=== PATIENT | male | born 1945 | race Caucasian/White ===

== ENCOUNTER 2018-04-03 01:05 | Inpatient (IN) | payer MEDICARE ==
[2018-04-03] VITALS (12 sets, daily range): BP systolic 119–172; BP diastolic 59–98
[~2018-04-03] VITALS: Ht 182.9 cm; Wt 136.0 kg
[2018-04-03 02:39] LABS: Basophils # (auto) 0.1 uL; Eosinophils # (auto) 0.3 uL; Hematocrit 21.7 % (41.0-53.0); Lymphocytes # (auto) 1.9 uL; Mean Corpuscular Hemoglobin 17.9 pg (28.0-32.0); Mean Corpuscular Volume 61.3 fL (80.0-100.0); Neutrophils # (auto) 8.2 uL; Red Blood Cells 3.54 10^6/uL (4.5-5.90)
[2018-04-03 02:41] LABS: Eosinophils % (auto) 2.4 % (0.0-7.0); Lymphocytes % (auto) 16.3 % (10.0-50.0); Mean Corpuscular Hgb Conc. 29.2 g/dL (32.0-36.0); Monocytes # (auto) 0.9 uL; Monocytes % (auto) 7.8 % (0.0-12.0); Neutrophils % (auto) 72.5 % (37.0-80.0); Nucleated Red Blood Cells % 0.1 %; Platelet Count (auto) 364 10^3/uL (140-450); Red Cell Distribution Width 18.6 % (11.8-14.3); White Blood Cell 11.4 10^3/uL (4.4-10.8)
[2018-04-03 02:46] LABS: Hemoglobin 6.3 g/dL (13.5-17.5)
[2018-04-03 03:04] LABS: Alanine Aminotransferase 9 U/L (16-61); Albumin 3.5 g/dL (3.4-5.0); Anion Gap 11 (5-15); Aspartate Aminotransferase 9 U/L (15-37); BUN/Creatinine Ratio 13.1; Blood Urea Nitrogen 14 mg/dL (7-18); Calcium 8.5 mg/dL (8.5-10.1); Carbon Dioxide 21 mmol/L (21-32); Chloride 108 mmol/L (98-107); GFR African American 87 mL/min; GFR Non-African American 72 mL/min; Glucose 147 mg/dL (74-106); Magnesium 2.3 mg/dL (1.6-2.6); Potassium 3.7 mmol/L (3.5-5.1); Sodium 140 mmol/L (136-145)
[2018-04-03 03:08] LABS: Alkaline Phosphatase 61 U/L (45-117); Bilirubin, Total 0.5 mg/dL (0.2-1.0); Total Protein 7.3 g/dL (6.4-8.2)
[2018-04-03 04:03] LABS: Urine Bacteria NONE SEEN /hpf (None Seen); Urine Blood Negative /uL (Negative); Urine Specific Gravity 1.011 (1.001-1.035); Urine WBC 1 /hpf (0 - 3)
[2018-04-03] MEDS ORDERED: cloNIDine HCL 0.1 MG TAB PO PRN (06:30)
[2018-04-03] MEDS ORDERED: MORPHINE SULFATE 8mg/ml INJ SDV IV PRN (06:30)
[2018-04-03] MEDS ORDERED: ACETAMINOPHEN 325 MG TAB PO PRN (06:30)
[2018-04-03] MEDS ORDERED: NITROGLYCERIN 0.4 MG SL TAB SL PRN (06:30)
[2018-04-03 07:33] LABS: % Iron Saturation 1.9 % (20-55)
[2018-04-03] MEDS: HYDROcodone-ACET 5/325MG TAB PO PRN ×3 (07:44→21:27)
[2018-04-03] MEDS: PANTOPRAZOLE 40 MG/10 ML VIAL IV SCH (10:35)
[2018-04-03] MEDS ORDERED: DEXTROSE (50%) 50ML SYRG IV PRN (12:15)
[2018-04-03] MEDS: CARVEDILOL 3.125 MG TAB PO SCH ×2 (12:36→21:26)
[2018-04-03] MEDS: LISINOPRIL 20 MG TAB PO SCH (12:36)
[2018-04-03 12:52] LABS: Hematocrit 27.5 % (41.0-53.0); Hemoglobin 8.2 g/dL (13.5-17.5)
[2018-04-03] MEDS ORDERED: VENL150C58 PO (12:52)
[2018-04-03] MEDS ORDERED: TRIA75TA55 PO (12:52)
[2018-04-03] MEDS ORDERED: FENO1TAB42 PO (12:52)
[2018-04-03] MEDS ORDERED: MET50T PO (12:52)
[2018-04-03] MEDS ORDERED: PIO30T PO (12:52)
[2018-04-03] MEDS ORDERED: GABA-521 PO (12:52)
[2018-04-03] MEDS ORDERED: METF-372 PO (12:52)
[2018-04-03] MEDS ORDERED: VERA120T6 PO (12:52)
[2018-04-03] MEDS: ONDANSETRON HCL 4 MG/2 ML VIAL IV PRN ×2 (13:48→21:45)
[2018-04-03] MEDS: ACCU-CHEK COMFORT CURVE STRIP VI SCH ×2 (17:32→21:38)
[2018-04-03] MEDS: InsuLIN REG 1unit/0.01ml Soln (100units/ml) SC SCH ×2 (18:22→21:48)
[2018-04-03] MEDS ORDERED: MORPHINE SULFATE 4 MG/ML SYR/VIAL ONE (21:15)
[2018-04-04] MEDS: TEMAZEPAM 15 MG CAP PO PRN ×2 (00:02→00:15)
[2018-04-04 05:00] VITALS: BP 132/67
[2018-04-04 06:38] LABS: Basophils # (auto) 0.1 uL; Basophils % (auto) 0.7 % (0.0-2.0); Eosinophils # (auto) 0.5 uL; Eosinophils % (auto) 4.5 % (0.0-7.0); Hematocrit 28.8 % (41.0-53.0); Hemoglobin 8.6 g/dL (13.5-17.5); Lymphocytes # (auto) 1.9 uL; Lymphocytes % (auto) 18.4 % (10.0-50.0); Mean Corpuscular Hemoglobin 19.7 pg (28.0-32.0); Mean Corpuscular Hgb Conc. 29.8 g/dL (32.0-36.0); Mean Corpuscular Volume 66.2 fL (80.0-100.0); Monocytes # (auto) 0.8 uL; Monocytes % (auto) 7.9 % (0.0-12.0); Neutrophils % (auto) 68.5 % (37.0-80.0); Nucleated Red Blood Cells % 0.1 %; Platelet Count (auto) 400 10^3/uL (140-450); Red Blood Cells 4.35 10^6/uL (4.5-5.90); White Blood Cell 10.2 10^3/uL (4.4-10.8)
[2018-04-04] MEDS: InsuLIN REG 1unit/0.01ml Soln (100units/ml) SC SCH (06:44)
[2018-04-04] MEDS: ACCU-CHEK COMFORT CURVE STRIP VI SCH (06:45)
[2018-04-04 06:46] LABS: Albumin 3.6 g/dL (3.4-5.0); Potassium 3.5 mmol/L (3.5-5.1)
[2018-04-04 06:50] LABS: BUN/Creatinine Ratio 11.3
[2018-04-04 06:53] LABS: Bilirubin, Total 0.9 mg/dL (0.2-1.0); Total Protein 7.5 g/dL (6.4-8.2)
[2018-04-04 09:00] VITALS: BP 139/83
[2018-04-04] MEDS ORDERED: SODIUM FERR GLUC 62.5MG/5ML 125 MG in SODIUM CHL 0.9% 100 ML IV ONE (09:00)
[2018-04-04] MEDS ORDERED: LISINOPRIL 20 MG TAB PO SCH (10:00)
[2018-04-04] MEDS: PANTOPRAZOLE 40 MG/10 ML VIAL IV SCH (10:01)
[2018-04-04] MEDS: CARVEDILOL 3.125 MG TAB PO SCH (10:02)
[2018-04-04] MEDS: LISINOPRIL 20 MG TAB PO SCH (10:03)
[2018-04-04] MEDS: HYDROcodone-ACET 5/325MG TAB PO PRN (10:10)
== END 2018-04-04 10:45 | disposition home or self-care (01) | DRG 812 ==
LOC: ER 01:07 → TELE 01:08 → TELE-CENTR 14:38
PROVIDERS: ADMIT Nurse Practitioner; ATTEND Internal Medicine
PROC: 30233N1 Transfusion of Nonautologous Red Blood Cells into Peripheral Vein, Percutaneous Approach (ICD-10-PCS; principal; 2018-04-03)
DX: D50.9 Iron deficiency anemia, unspecified (principal); J44.9 Chronic obstructive pulmonary disease, unspecified; I11.9 Hypertensive heart disease without heart failure; E11.9 Type 2 diabetes mellitus without complications; R29.6 Repeated falls; Z82.49 Family history of ischemic heart disease and other diseases of the circulatory system; R55 Syncope and collapse; Z88.0 Allergy status to penicillin
CPT/HCPCS: 36415; 36430; 70450; 71045; 80053; 81001; 82962; 83036; 83540; 83550; 83605; 83735; 83880; 84484; 85014; 85018; 85025; 86850; 86900; 86901; 86920; 87040; 93005; 94761; 96374; 96375; C9113; J1815; J2405

== ENCOUNTER 2018-06-07 08:19 | Inpatient (IN) | payer MEDICARE ==
[~2018-06-07] VITALS: Ht 170.2 cm; Wt 116.0 kg
[~2018-06-07 08:19] MED LIST: FENO1TAB42 PO; GABA-521 PO; MET50T PO; METF-372 PO; PIO30T PO; TRIA75TA55 PO; VENL150C58 PO; VERA120T6 PO
[2018-06-07 09:19] LABS: Basophils # (auto) 0.1 uL; Eosinophils # (auto) 0.1 uL; Monocytes # (auto) 0.6 uL
[2018-06-07 09:21] LABS: Basophils % (auto) 0.8 % (0.0-2.0); Eosinophils % (auto) 0.8 % (0.0-7.0); Hematocrit 32.5 % (41.0-53.0); Hemoglobin 10.1 g/dL (13.5-17.5); Lymphocytes # (auto) 1.1 uL; Lymphocytes % (auto) 8.6 % (10.0-50.0); Mean Corpuscular Hemoglobin 24.6 pg (28.0-32.0); Mean Corpuscular Volume 79.4 fL (80.0-100.0); Monocytes % (auto) 4.7 % (0.0-12.0); Neutrophils # (auto) 11.1 uL; Neutrophils % (auto) 85.1 % (37.0-80.0); Platelet Count (auto) 284 10^3/uL (140-450)
[2018-06-07 09:22] LABS: Red Cell Distribution Width 26.1 % (11.8-14.3)
[2018-06-07 09:27] LABS: Urine Bacteria NONE SEEN /hpf (None Seen); Urine Blood 1+ /uL (Negative); Urine Hyaline Cast FEW /lpf (0 - 2); Urine Mucus FEW (None Seen); Urine Specific Gravity 1.028 (1.001-1.035); Urine WBC 5 /hpf (0 - 3)
[2018-06-07 09:28] LABS: Albumin 3.3 g/dL (3.4-5.0); BUN/Creatinine Ratio 19.8; Calcium 8.1 mg/dL (8.5-10.1); Magnesium 1.8 mg/dL (1.6-2.6); Potassium 3.2 mmol/L (3.5-5.1)
[2018-06-07 09:33] LABS: Bilirubin, Total 0.4 mg/dL (0.2-1.0); Total Protein 6.4 g/dL (6.4-8.2)
[2018-06-07] MEDS ORDERED: HYDROcodone-ACET 5/325MG TAB PO ONE (10:45)
[2018-06-07] MEDS ORDERED: ONDANSETRON HCL 4 MG/2 ML VIAL IV ONE (12:00)
[2018-06-07] MEDS ORDERED: MORPHINE SULF INJ 2 MG/ML SYRINGE 1ML IV ONE (12:00)
[2018-06-07] MEDS ORDERED: ASPirin-EC 81 mg tab PO ONE (14:15)
[2018-06-07] MEDS ORDERED: DEXTROSE (50%) 50ML SYRG IV PRN (14:15)
[2018-06-07] MEDS ORDERED: POTASSIUM CHLORIDE 8 MEQ TAB PO ONE (14:15)
[2018-06-07] MEDS ORDERED: ACETAMINOPHEN 325 MG TAB PO PRN (14:30)
[2018-06-07] MEDS ORDERED: DOCUSATE SOD 100 MG CAP PO PRN (14:30)
[2018-06-07] MEDS ORDERED: MORPHINE SULF INJ 2 MG/ML SYRINGE 1ML IV PRN (14:30)
[2018-06-07] MEDS ORDERED: ONDANSETRON HCL 4 MG/2 ML VIAL IV PRN (14:30)
[2018-06-07] MEDS ORDERED: NITROGLYCERIN 0.4 MG SL TAB SL PRN (14:30)
[2018-06-07] MEDS: HYDROcodone-ACET 5/325MG TAB PO PRN (14:55)
[2018-06-07 16:19] VITALS: BP 176/97
[2018-06-07] MEDS: InsuLIN REG 1unit/0.01ml Soln (100units/ml) SC SCH ×2 (17:30→21:46)
[2018-06-07] MEDS: ACCU-CHEK COMFORT CURVE STRIP VI SCH ×2 (17:31→21:46)
[2018-06-07] MEDS ORDERED: PROMETHAZINE HCL 25 MG/ML 1ML IV PRN (17:45)
[2018-06-07] MEDS ORDERED: diphenhdrAMINE HCL 25 MG CAP PO PRN (17:45)
[2018-06-07 18:24] VITALS: BP 148/65
[2018-06-07 19:46] LABS: Lactic Acid w/Reflex 2.3 mmol/L (0.4-2.0)
[2018-06-07] MEDS: MORPHINE SULFATE 4 MG/ML SYR/VIAL IV PRN (19:47)
[2018-06-07 20:00] VITALS: BP 152/78
[2018-06-07] MEDS ORDERED: LORazepam 2MG/ML-1ML VIAL IV PRN (20:00)
[2018-06-07 20:40] LABS: Cholesterol 121 mg/dL (< 200); HDL Cholesterol 34 mg/dL (40-59); LDL Cholesterol 73 mg/dL (< 100); Triglycerides 150 mg/dL (< 150)
[2018-06-07] MEDS: SODIUM CHLOR 0.9% PF (SALINE LOCK) 10ML VIAL/SYR IV SCH (21:36)
[2018-06-07] MEDS: VENLAFAXINE HCL 37.5mg XR cap PO SCH (21:36)
[2018-06-07] MEDS: ATORVASTATIN 20 MG TAB PO SCH (21:37)
[2018-06-07] MEDS: GABAPENTIN 300 MG CAP PO SCH (21:38)
[2018-06-07] MEDS: METOPROLOL TARTRATE 50 MG TAB PO SCH (21:38)
[2018-06-07] MEDS: FAMOTIDINE 20 MG TAB PO SCH (21:40)
[2018-06-07] MEDS: HALOPERIDOL LACTATE 5 MG/ML INJ VIAL IM PRN (21:48)
[2018-06-08] MEDS: MORPHINE SULFATE 4 MG/ML SYR/VIAL IV PRN (00:51)
[2018-06-08 05:56] LABS: Eosinophils # (auto) 0.2 uL
[2018-06-08 06:04] LABS: Potassium 3.6 mmol/L (3.5-5.1)
[2018-06-08 06:05] LABS: Basophils # (auto) 0.1 uL; Basophils % (auto) 0.6 % (0.0-2.0); Eosinophils % (auto) 1.9 % (0.0-7.0); Hematocrit 33.1 % (41.0-53.0); Hemoglobin 10.5 g/dL (13.5-17.5); Lymphocytes # (auto) 1.7 uL; Lymphocytes % (auto) 18.8 % (10.0-50.0); Mean Corpuscular Hemoglobin 25.5 pg (28.0-32.0); Mean Corpuscular Hgb Conc. 31.9 g/dL (32.0-36.0); Mean Corpuscular Volume 79.9 fL (80.0-100.0); Monocytes # (auto) 0.8 uL; Monocytes % (auto) 9.2 % (0.0-12.0); Neutrophils # (auto) 6.2 uL; Neutrophils % (auto) 69.5 % (37.0-80.0); Platelet Count (auto) 325 10^3/uL (140-450); Red Blood Cells 4.14 10^6/uL (4.5-5.90)
[2018-06-08 06:10] LABS: Albumin 3.3 g/dL (3.4-5.0); BUN/Creatinine Ratio 15.9; Calcium 8.7 mg/dL (8.5-10.1)
[2018-06-08 06:13] LABS: Bilirubin, Total 0.7 mg/dL (0.2-1.0); Total Protein 6.7 g/dL (6.4-8.2)
[2018-06-08 06:25] LABS: Red Cell Distribution Width 25.5 % (11.8-14.3)
[2018-06-08] MEDS: SODIUM CHLOR 0.9% PF (SALINE LOCK) 10ML VIAL/SYR IV SCH ×3 (07:02→21:06)
[2018-06-08] MEDS: GABAPENTIN 300 MG CAP PO SCH ×3 (07:03→21:06)
[2018-06-08] MEDS: InsuLIN REG 1unit/0.01ml Soln (100units/ml) SC SCH ×4 (07:03→21:54)
[2018-06-08] MEDS: ACCU-CHEK COMFORT CURVE STRIP VI SCH ×4 (07:03→21:11)
[2018-06-08] MEDS: HYDROcodone-ACET 5/325MG TAB PO PRN (09:15)
[2018-06-08] MEDS: FENOFIBRATE 145MG TAB PO SCH (10:00)
[2018-06-08] MEDS: VERAPAMIL HCL 120 mg ER tab PO SCH (10:15)
[2018-06-08] MEDS: ASPirin-EC 81 mg tab PO SCH (10:16)
[2018-06-08] MEDS: TRIAMTERENE/HCTZ 37.5/25 MG CAP/TAB PO SCH (10:16)
[2018-06-08] MEDS: VENLAFAXINE HCL 37.5mg XR cap PO SCH ×2 (10:16→21:07)
[2018-06-08] MEDS: PIOGLITAZONE HYDROCHLORIDE 30 MG TAB PO SCH (10:16)
[2018-06-08] MEDS: MULTIPLE VITAMIN TAB PO SCH (10:17)
[2018-06-08] MEDS: ENOXAPARIN SOD 40 MG/0.4 ML SYRINGE SC SCH (10:17)
[2018-06-08] MEDS: FAMOTIDINE 20 MG TAB PO SCH ×2 (10:17→21:10)
[2018-06-08] MEDS: METOPROLOL TARTRATE 50 MG TAB PO SCH ×2 (10:17→21:10)
[2018-06-08] MEDS ORDERED: POTASSIUM CHL 20 Meq TABLET PO ONE (13:15)
[2018-06-08] MEDS ORDERED: FUROSEMIDE 40 MG/4 ML VIAL IV ONE (13:15)
[2018-06-08] MEDS ORDERED: ALBUTEROL SULF 2.5 MG/0.5ML(0.5%) NEB SOLN ONE (13:43)
[2018-06-08] MEDS ORDERED: IPRATROPIUM BROM 0.5 MG/2.5ML INH SOL ONE (13:43)
[2018-06-08] MEDS ORDERED: ALBUTEROL SULF 2.5 MG/0.5ML(0.5%) NEB SOLN NEB PRN (13:45)
[2018-06-08] MEDS ORDERED: ALBUTEROL SULF 2.5 MG/0.5ML(0.5%) NEB SOLN NEB ONE (13:45)
[2018-06-08] MEDS ORDERED: IPRATROPIUM BROM 0.5 MG/2.5ML INH SOL NEB ONE (13:45)
[2018-06-08] MEDS ORDERED: IPRATROPIUM BROM 0.5 MG/2.5ML INH SOL NEB PRN (13:45)
[2018-06-08 14:50] LABS: INR 1.01 (0.9-1.15); Partial Thromboplastin Time 30.1 sec (23.78-33.04); Prothrombin Time 10.8 sec (9.27-12.13)
[2018-06-08] MEDS ORDERED: methylPREDNISolone SOD SUCC 40 MG/ML VL IV ONE (15:15)
[2018-06-08 15:20] VITALS: BP 139/89
[2018-06-08] MEDS: IPRATROPIUM BROM 0.5 MG/2.5ML INH SOL NEB SCH (19:05)
[2018-06-08] MEDS: BUDESONIDE (INHALATION) 0.5 MG/2 ML NEB NEB SCH (19:05)
[2018-06-08] MEDS: ALBUTEROL SULF 2.5 MG/0.5ML(0.5%) NEB SOLN NEB SCH (19:05)
[2018-06-08 20:00] VITALS: BP 122/68
[2018-06-08 21:03] VITALS: BP 139/89
[2018-06-08] MEDS: ATORVASTATIN 20 MG TAB PO SCH (21:07)
[2018-06-08] MEDS: methylPREDNISolone SOD SUCC 40 MG/ML VL IV SCH (21:08)
[2018-06-08 21:49] VITALS: BP 122/68
[2018-06-09] MEDS: MORPHINE SULFATE 4 MG/ML SYR/VIAL IV PRN (04:51)
[2018-06-09 05:00] VITALS: BP 150/74
[2018-06-09] MEDS: SODIUM CHLOR 0.9% PF (SALINE LOCK) 10ML VIAL/SYR IV SCH ×3 (05:57→22:10)
[2018-06-09] MEDS: methylPREDNISolone SOD SUCC 40 MG/ML VL IV SCH ×3 (05:58→22:10)
[2018-06-09] MEDS: HYDROcodone-ACET 5/325MG TAB PO PRN ×3 (05:58→20:39)
[2018-06-09] MEDS: GABAPENTIN 300 MG CAP PO SCH ×3 (05:58→22:11)
[2018-06-09] MEDS: IPRATROPIUM BROM 0.5 MG/2.5ML INH SOL NEB SCH ×3 (06:01→18:33)
[2018-06-09] MEDS: BUDESONIDE (INHALATION) 0.5 MG/2 ML NEB NEB SCH ×2 (06:01→18:33)
[2018-06-09] MEDS: ALBUTEROL SULF 2.5 MG/0.5ML(0.5%) NEB SOLN NEB SCH ×3 (06:01→18:33)
[2018-06-09] MEDS: InsuLIN REG 1unit/0.01ml Soln (100units/ml) SC SCH ×4 (06:53→18:01)
[2018-06-09] MEDS: ACCU-CHEK COMFORT CURVE STRIP VI SCH ×3 (06:53→18:00)
[2018-06-09 09:00] VITALS: BP 146/73
[2018-06-09 09:02] LABS: Folate (Folic Acid) 13.97 ng/mL (5.38-24)
[2018-06-09] MEDS: MULTIPLE VITAMIN TAB PO SCH (09:24)
[2018-06-09] MEDS: TRIAMTERENE/HCTZ 37.5/25 MG CAP/TAB PO SCH (09:25)
[2018-06-09] MEDS: PIOGLITAZONE HYDROCHLORIDE 30 MG TAB PO SCH (09:26)
[2018-06-09] MEDS: VERAPAMIL HCL 120 mg ER tab PO SCH (09:26)
[2018-06-09] MEDS: VENLAFAXINE HCL 37.5mg XR cap PO SCH ×2 (09:27→22:10)
[2018-06-09] MEDS: ASPirin-EC 81 mg tab PO SCH (09:28)
[2018-06-09] MEDS: METOPROLOL TARTRATE 50 MG TAB PO SCH ×2 (09:29→22:12)
[2018-06-09] MEDS: FAMOTIDINE 20 MG TAB PO SCH ×2 (09:30→22:11)
[2018-06-09] MEDS: ENOXAPARIN SOD 40 MG/0.4 ML SYRINGE SC SCH (09:30)
[2018-06-09] MEDS: FENOFIBRATE 145MG TAB PO SCH (09:31)
[2018-06-09] MEDS ORDERED: DEXTROSE (50%) 50ML SYRG IV PRN (11:30)
[2018-06-09 12:22] VITALS: BP 142/68
[2018-06-09 17:00] VITALS: BP 156/84
[2018-06-09 20:00] VITALS: BP 148/83
[2018-06-09 22:00] VITALS: BP 148/83
[2018-06-09] MEDS: ATORVASTATIN 20 MG TAB PO SCH (22:10)
[2018-06-10] MEDS: InsuLIN REG 1unit/0.01ml Soln (100units/ml) SC SCH ×4 (00:25→18:35)
[2018-06-10] MEDS: ACCU-CHEK COMFORT CURVE STRIP VI SCH ×4 (00:25→18:25)
[2018-06-10] MEDS: HYDROcodone-ACET 5/325MG TAB PO PRN ×2 (03:37→21:43)
[2018-06-10 05:00] VITALS: BP 170/86
[2018-06-10] MEDS: SODIUM CHLOR 0.9% PF (SALINE LOCK) 10ML VIAL/SYR IV SCH ×2 (06:20→21:39)
[2018-06-10] MEDS: methylPREDNISolone SOD SUCC 40 MG/ML VL IV SCH ×2 (06:20→13:55)
[2018-06-10] MEDS: GABAPENTIN 300 MG CAP PO SCH ×3 (06:21→21:38)
[2018-06-10] MEDS: BUDESONIDE (INHALATION) 0.5 MG/2 ML NEB NEB SCH ×2 (06:49→19:29)
[2018-06-10] MEDS: IPRATROPIUM BROM 0.5 MG/2.5ML INH SOL NEB SCH ×4 (06:49→19:29)
[2018-06-10] MEDS: ALBUTEROL SULF 2.5 MG/0.5ML(0.5%) NEB SOLN NEB SCH ×4 (06:49→19:29)
[2018-06-10 09:00] VITALS: BP 135/75
[2018-06-10] MEDS: MORPHINE SULFATE 4 MG/ML SYR/VIAL IV PRN (09:09)
[2018-06-10] MEDS: FENOFIBRATE 145MG TAB PO SCH (10:00)
[2018-06-10] MEDS: PIOGLITAZONE HYDROCHLORIDE 30 MG TAB PO SCH (11:15)
[2018-06-10] MEDS: FAMOTIDINE 20 MG TAB PO SCH ×2 (11:16→21:39)
[2018-06-10] MEDS: TRIAMTERENE/HCTZ 37.5/25 MG CAP/TAB PO SCH (11:16)
[2018-06-10] MEDS: METOPROLOL TARTRATE 50 MG TAB PO SCH ×2 (11:17→21:39)
[2018-06-10] MEDS: MULTIPLE VITAMIN TAB PO SCH (11:17)
[2018-06-10] MEDS: ASPirin-EC 81 mg tab PO SCH (11:17)
[2018-06-10] MEDS: ENOXAPARIN SOD 40 MG/0.4 ML SYRINGE SC SCH (11:18)
[2018-06-10] MEDS: VENLAFAXINE HCL 37.5mg XR cap PO SCH ×2 (11:21→21:39)
[2018-06-10] MEDS: VERAPAMIL HCL 120 mg ER tab PO SCH (11:21)
[2018-06-10 13:00] VITALS: BP 138/71
[2018-06-10] MEDS ORDERED: MORPHINE SULFATE 4 MG/ML SYR/VIAL IV PRN (14:15)
[2018-06-10] MEDS ORDERED: predniSONE 20 MG TAB PO ONE (14:15)
[2018-06-10] MEDS ORDERED: MORPHINE SULF INJ 2 MG/ML SYRINGE 1ML IV PRN (14:15)
[2018-06-10] MEDS: HALOPERIDOL LACTATE 5 MG/ML INJ VIAL IM PRN (15:29)
[2018-06-10 17:00] VITALS: BP 136/70
[2018-06-10] MEDS: metFORMIN HYDROCHLORIDE 500 MG TAB PO SCH (18:35)
[2018-06-10] MEDS ORDERED: CYANOCOBALAMIN (B-12) 1000 MCG/1 ML VIAL IM ONE (18:45)
[2018-06-10] MEDS: ATORVASTATIN 20 MG TAB PO SCH (21:38)
[2018-06-10 22:00] VITALS: BP 159/86
[2018-06-11] MEDS: ACCU-CHEK COMFORT CURVE STRIP VI SCH ×4 (00:07→17:50)
[2018-06-11] MEDS: InsuLIN REG 1unit/0.01ml Soln (100units/ml) SC SCH ×4 (00:08→17:50)
[2018-06-11] MEDS: IPRATROPIUM BROM 0.5 MG/2.5ML INH SOL NEB SCH ×3 (01:09→12:08)
[2018-06-11] MEDS: ALBUTEROL SULF 2.5 MG/0.5ML(0.5%) NEB SOLN NEB SCH ×3 (01:10→12:08)
[2018-06-11] MEDS: HYDROcodone-ACET 5/325MG TAB PO PRN ×2 (03:43→15:31)
[2018-06-11 05:00] VITALS: BP 147/71
[2018-06-11] MEDS: GABAPENTIN 300 MG CAP PO SCH ×2 (06:24→13:34)
[2018-06-11] MEDS: metFORMIN HYDROCHLORIDE 500 MG TAB PO SCH ×2 (06:28→17:50)
[2018-06-11] MEDS: SODIUM CHLOR 0.9% PF (SALINE LOCK) 10ML VIAL/SYR IV SCH ×2 (06:29→13:29)
[2018-06-11] MEDS: BUDESONIDE (INHALATION) 0.5 MG/2 ML NEB NEB SCH (06:43)
[2018-06-11 08:00] VITALS: BP 154/72
[2018-06-11 09:00] VITALS: BP 142/71
[2018-06-11] MEDS: FENOFIBRATE 145MG TAB PO SCH (10:00)
[2018-06-11] MEDS ORDERED: predniSONE 20 MG TAB PO SCH (10:00)
[2018-06-11] MEDS ORDERED: CYANOCOBALAMIN 500 MCG TAB PO SCH (10:00)
[2018-06-11] MEDS: FAMOTIDINE 20 MG TAB PO SCH (10:35)
[2018-06-11] MEDS: MULTIPLE VITAMIN TAB PO SCH (10:36)
[2018-06-11] MEDS: TRIAMTERENE/HCTZ 37.5/25 MG CAP/TAB PO SCH (10:36)
[2018-06-11] MEDS: VERAPAMIL HCL 120 mg ER tab PO SCH (10:37)
[2018-06-11] MEDS: PIOGLITAZONE HYDROCHLORIDE 30 MG TAB PO SCH (10:37)
[2018-06-11] MEDS: METOPROLOL TARTRATE 50 MG TAB PO SCH (10:38)
[2018-06-11] MEDS: VENLAFAXINE HCL 37.5mg XR cap PO SCH (10:38)
[2018-06-11] MEDS: ENOXAPARIN SOD 40 MG/0.4 ML SYRINGE SC SCH (10:39)
[2018-06-11] MEDS: ASPirin-EC 81 mg tab PO SCH (10:40)
[2018-06-11 12:00] VITALS: BP 136/67
[2018-06-11] MEDS ORDERED: ATOR20TA50 PO (13:07)
[2018-06-11] MEDS ORDERED: ASP81EC PO (13:07)
[2018-06-11] MEDS ORDERED: CYAN500T2 PO (13:07)
[2018-06-11 17:00] VITALS: BP 150/90
== END 2018-06-11 19:00 | disposition home or self-care (01) | DRG 291 ==
LOC: EDUNIT# 08:19 → ER 08:23 → TELE-WESTW 08:24 → TELE-CENTR 06-10 16:14
PROVIDERS: ADMIT Internal Medicine; ATTEND Internal Medicine
PROC: 5A09357 Assistance with Respiratory Ventilation, Less than 24 Consecutive Hours, Continuous Positive Airway Pressure (ICD-10-PCS; principal; 2018-06-08)
PROC: 5A09357 Assistance with Respiratory Ventilation, Less than 24 Consecutive Hours, Continuous Positive Airway Pressure (ICD-10-PCS; 2018-06-10)
DX: I13.0 Hypertensive heart and chronic kidney disease with heart failure and stage 1 through stage 4 chronic kidney disease, or unspecified chronic kidney disease (principal); J96.01 Acute respiratory failure with hypoxia; I50.43 Acute on chronic combined systolic (congestive) and diastolic (congestive) heart failure; G93.41 Metabolic encephalopathy; J44.1 Chronic obstructive pulmonary disease with (acute) exacerbation; E44.1 Mild protein-calorie malnutrition; G45.9 Transient cerebral ischemic attack, unspecified; Z68.41 Body mass index [BMI] 40.0-44.9, adult; G93.1 Anoxic brain damage, not elsewhere classified; E11.42 Type 2 diabetes mellitus with diabetic polyneuropathy; I42.1 Obstructive hypertrophic cardiomyopathy; E87.6 Hypokalemia; D50.9 Iron deficiency anemia, unspecified; N18.2 Chronic kidney disease, stage 2 (mild); G47.30 Sleep apnea, unspecified; E11.21 Type 2 diabetes mellitus with diabetic nephropathy; K80.20 Calculus of gallbladder without cholecystitis without obstruction; E11.22 Type 2 diabetes mellitus with diabetic chronic kidney disease; E53.8 Deficiency of other specified B group vitamins; E66.01 Morbid (severe) obesity due to excess calories; G47.33 Obstructive sleep apnea (adult) (pediatric); I44.30 Unspecified atrioventricular block; I45.10 Unspecified right bundle-branch block; N28.1 Cyst of kidney, acquired; Z79.82 Long term (current) use of aspirin; Z79.899 Other long term (current) drug therapy; Z80.0 Family history of malignant neoplasm of digestive organs; Z82.0 Family history of epilepsy and other diseases of the nervous system; Z82.49 Family history of ischemic heart disease and other diseases of the circulatory system; Z95.810 Presence of automatic (implantable) cardiac defibrillator
CPT/HCPCS: 36415; 36600; 51702; 70450; 71045; 74176; 80053; 80061; 81001; 82607; 82746; 82805; 82962; 83036; 83540; 83605; 83735; 83880; 84443; 84484; 85025; 85379; 85610; 85730; 87081; 87086; 92610; 93005; 93306; 93886; 94640; 94660; 94761; 95819; 96374; 96375; 97116; 97163; 97530; J1815; J2405

== ENCOUNTER 2020-12-31 02:02 | Inpatient (IN) | payer MEDICARE ==
[~2020-12-31] VITALS: Ht 170.2 cm; Wt 96.6 kg
[~2020-12-31 02:02] MED LIST changes: +ASPI-394 PO; +ATOR20TA50 PO; +CYAN500T3 PO; +FENO145T27 PO; -FENO1TAB42 PO; +VERA120T13 PO; -VERA120T6 PO
[2020-12-31] MEDS ORDERED: ALBUTEROL SULF 2.5 MG/0.5ML(0.5%) NEB SOLN NEB ONE (02:30)
[2020-12-31] MEDS ORDERED: IPRATROPIUM BROM 0.5 MG/2.5ML INH SOL NEB ONE (02:30)
[2020-12-31 02:47] LABS: Basophils # (auto) 0.1 10 ^3/uL (0-0.2); Eosinophils # (auto) 0.2 10 ^3/uL (0-0.8); Lymphocytes # (auto) 1.1 10 ^3/uL (0.4-5.4); Monocytes # (auto) 0.8 10 ^3/uL (0-1.3); Neutrophils # (auto) 6.6 10 ^3/uL (1.6-8.6); Nucleated Red Blood Cells % 0.1 %; Red Cell Distribution Width 18.4 % (11.8-14.3); White Blood Cell 8.8 10^3/uL (4.4-10.8)
[2020-12-31 02:48] LABS: Basophils % (auto) 0.9 % (0.0-2.0); Eosinophils % (auto) 2.2 % (0.0-7.0); Hematocrit 41.1 % (41.0-53.0); Lymphocytes % (auto) 12.5 % (10.0-50.0); Mean Corpuscular Hemoglobin 24.5 pg (28.0-32.0); Mean Corpuscular Hgb Conc. 31.7 g/dL (32.0-36.0); Mean Corpuscular Volume 77.3 fL (80.0-100.0); Neutrophils % (auto) 75.4 % (37.0-80.0); Platelet Count (auto) 253 10^3/uL (140-450); Red Blood Cells 5.32 10^6/uL (4.5-5.90)
[2020-12-31 03:13] LABS: Alanine Aminotransferase 10 U/L (16-61); Albumin 2.8 g/dL (3.4-5.0); Anion Gap 9 (5-15); BUN/Creatinine Ratio 12.7; Blood Urea Nitrogen 18 mg/dL (7-18); Calcium 8.7 mg/dL (8.5-10.1); Carbon Dioxide 23 mmol/L (21-32); Chloride 105 mmol/L (98-107); GFR African American 63 mL/min; GFR Non-African American 52 mL/min; Glucose 157 mg/dL (74-106); Magnesium 1.8 mg/dL (1.6-2.6); Potassium 4.6 mmol/L (3.5-5.1); Sodium 137 mmol/L (136-145)
[2020-12-31 03:18] LABS: Alkaline Phosphatase 326 U/L (45-117); Aspartate Aminotransferase 27 U/L (15-37); Bilirubin, Total 0.7 mg/dL (0.2-1.0); Total Protein 7.1 g/dL (6.4-8.2)
[2020-12-31 04:31] LABS: INR 1.15 (0.9-1.15); Partial Thromboplastin Time 30.1 sec (23.0-31.2)
[2020-12-31] MEDS ORDERED: ENOXAPARIN SOD 120 MG/0.8 ML SYRINGE SC ONE (04:45)
[2020-12-31] MEDS ORDERED: ONDANSETRON HCL 4 MG/2 ML VIAL IV ONE (05:15)
[2020-12-31] MEDS ORDERED: AMIODARONE HCL 200 MG TAB PO ONE (06:15)
[2020-12-31] MEDS ORDERED: NITROGLYCERIN 0.4 MG SL TAB SL PRN (06:45)
[2020-12-31] MEDS ORDERED: MORPHINE SULF INJ 2 MG/ML SYRINGE 1ML IV PRN (06:45)
[2020-12-31] MEDS ORDERED: DEXTROSE (50%) 50ML SYRG IV PRN (06:45)
[2020-12-31] MEDS: ACCU-CHEK COMFORT CURVE STRIP VI SCH ×4 (07:05→21:48)
[2020-12-31] MEDS: InsuLIN REG 1unit/0.01ml Soln (100units/ml) SC SCH ×4 (07:07→21:47)
[2020-12-31 07:26] LABS: Eosinophils # (auto) 0.1 10 ^3/uL (0-0.8); Hemoglobin 12.2 g/dL (13.5-17.5); Lymphocytes # (auto) 0.8 10 ^3/uL (0.4-5.4); Mean Corpuscular Volume 76.5 fL (80.0-100.0); Monocytes # (auto) 0.6 10 ^3/uL (0-1.3); Monocytes % (auto) 8.1 % (0.0-12.0); Neutrophils # (auto) 6.4 10 ^3/uL (1.6-8.6)
[2020-12-31 07:29] LABS: Basophils # (auto) 0.1 10 ^3/uL (0-0.2); Basophils % (auto) 0.8 % (0.0-2.0); Eosinophils % (auto) 1.2 % (0.0-7.0); Hematocrit 38.7 % (41.0-53.0); Lymphocytes % (auto) 10.3 % (10.0-50.0); Mean Corpuscular Hemoglobin 24.2 pg (28.0-32.0); Mean Corpuscular Hgb Conc. 31.6 g/dL (32.0-36.0); Neutrophils % (auto) 79.6 % (37.0-80.0); Nucleated Red Blood Cells % 0.1 %; Platelet Count (auto) 312 10^3/uL (140-450); Red Blood Cells 5.06 10^6/uL (4.5-5.90)
[2020-12-31 07:46] LABS: INR 1.18 (0.9-1.15)
[2020-12-31 07:56] LABS: Albumin 2.9 g/dL (3.4-5.0); Calcium 8.8 mg/dL (8.5-10.1); Potassium 4.2 mmol/L (3.5-5.1)
[2020-12-31 07:59] LABS: BUN/Creatinine Ratio 13.9; Bilirubin, Total 0.7 mg/dL (0.2-1.0); Total Protein 7.3 g/dL (6.4-8.2)
[2020-12-31 08:43] VITALS: BP 130/64
[2020-12-31 09:17] LABS: Magnesium 1.7 mg/dL (1.6-2.6)
[2020-12-31] MEDS: ZINC SULFATE 220mg CAP or TAB PO SCH (10:47)
[2020-12-31] MEDS: FAMOTIDINE (10MG/ML) 2ML VL IV SCH ×2 (10:47→21:46)
[2020-12-31] MEDS: MULTIPLE VITAMIN TAB PO SCH (10:47)
[2020-12-31] MEDS: ASCORBIC ACID 500 MG TAB PO SCH ×2 (10:48→21:47)
[2020-12-31] MEDS: HEPARIN SODIUM (PORCINE) 5000 UNITS/ML 1ML VIAL SC SCH ×2 (10:49→21:48)
[2020-12-31] MEDS ORDERED: CEFTRIAXONE SODIUM 2 GM in D5W 5% 50 ML IV ONE (11:15)
[2020-12-31] MEDS ORDERED: IOHEXOL 350 MG/ML 100ML IJ ONE (11:15)
[2020-12-31 12:11] VITALS: BP 150/82
[2020-12-31] MEDS: DOXYCYCLINE 100MG/250ML 250 ML IV SCH ×2 (12:43→23:36)
[2020-12-31] MEDS: SODIUM CHLOR 0.9% PF (SALINE LOCK) 10ML VIAL/SYR IV SCH ×2 (14:09→21:46)
[2020-12-31] MEDS: hydrALAZINE HCL 20 MG/ML VL IV PRN (17:14)
[2020-12-31] MEDS: ONDANSETRON HCL 4 MG/2 ML VIAL IV PRN (18:39)
[2020-12-31] MEDS: ALBUTEROL SULF 2.5 MG/0.5ML(0.5%) NEB SOLN NEB PRN (18:53)
[2020-12-31] MEDS: IPRATROPIUM BROM 0.5 MG/2.5ML INH SOL NEB PRN (18:53)
[2020-12-31] MEDS: METOPROLOL TARTRATE 50 MG TAB PO SCH (21:47)
[2020-12-31] MEDS: PRAMIPEXOLE DIHYDROCHLORIDE MO 0.25 MG TAB PO SCH (21:47)
[2020-12-31 22:00] VITALS: BP 135/58
[2021-01-01] VITALS (13 sets, daily range): BP systolic 127–177; BP diastolic 58–102
[2021-01-01] MEDS: HYDROcodone-ACET 5/325MG TAB PO PRN
[2021-01-01] MEDS: ONDANSETRON HCL 4 MG/2 ML VIAL IV PRN ×5 (02:01→18:33)
[2021-01-01] MEDS: PRAMIPEXOLE DIHYDROCHLORIDE MO 0.25 MG TAB PO SCH ×3 (06:00→22:09)
[2021-01-01] MEDS: ACCU-CHEK COMFORT CURVE STRIP VI SCH ×4 (06:03→22:09)
[2021-01-01] MEDS: InsuLIN REG 1unit/0.01ml Soln (100units/ml) SC SCH ×4 (06:41→22:00)
[2021-01-01 07:27] LABS: Basophils # (auto) 0 10 ^3/uL (0-0.2); Hemoglobin 11.7 g/dL (13.5-17.5); Mean Corpuscular Hemoglobin 24.2 pg (28.0-32.0); Mean Corpuscular Hgb Conc. 31.4 g/dL (32.0-36.0); Monocytes # (auto) 0.6 10 ^3/uL (0-1.3); White Blood Cell 6.2 10^3/uL (4.4-10.8)
[2021-01-01 07:30] LABS: Basophils % (auto) 0.7 % (0.0-2.0); Eosinophils # (auto) 0.1 10 ^3/uL (0-0.8); Eosinophils % (auto) 2.2 % (0.0-7.0); Hematocrit 37.2 % (41.0-53.0); Lymphocytes # (auto) 0.5 10 ^3/uL (0.4-5.4); Lymphocytes % (auto) 8.7 % (10.0-50.0); Mean Corpuscular Volume 76.9 fL (80.0-100.0); Monocytes % (auto) 10.2 % (0.0-12.0); Neutrophils # (auto) 4.9 10 ^3/uL (1.6-8.6); Neutrophils % (auto) 78.2 % (37.0-80.0); Platelet Count (auto) 250 10^3/uL (140-450); Red Blood Cells 4.84 10^6/uL (4.5-5.90); Red Cell Distribution Width 17.7 % (11.8-14.3)
[2021-01-01 07:44] LABS: Albumin 2.7 g/dL (3.4-5.0); BUN/Creatinine Ratio 12.5; Calcium 8.9 mg/dL (8.5-10.1); Potassium 4.2 mmol/L (3.5-5.1)
[2021-01-01 07:47] LABS: Bilirubin, Total 0.5 mg/dL (0.2-1.0); Total Protein 6.5 g/dL (6.4-8.2)
[2021-01-01] MEDS: HEPARIN SODIUM (PORCINE) 5000 UNITS/ML 1ML VIAL SC SCH ×2 (08:00→22:10)
[2021-01-01] MEDS ORDERED: fentaNYL CITRATE 100 MCG/2 ML VL IV ONE (10:00)
[2021-01-01] MEDS ORDERED: MIDAZOLAM HCL 1MG/1ML-2 ML VIAL IV ONE (10:00)
[2021-01-01] MEDS ORDERED: fentaNYL CITRATE 100 MCG/2 ML VL ONE (10:05)
[2021-01-01] MEDS ORDERED: MIDAZOLAM HCL 1MG/1ML-2 ML VIAL ONE (10:05)
[2021-01-01] MEDS: DOXYCYCLINE 100MG/250ML 250 ML IV SCH ×2 (11:25→23:15)
[2021-01-01] MEDS: cefTRIAXone 1GM/50ML D5W 50 ML IV SCH (11:25)
[2021-01-01] MEDS: FAMOTIDINE (10MG/ML) 2ML VL IV SCH ×2 (11:25→22:07)
[2021-01-01] MEDS: ZINC SULFATE 220mg CAP or TAB PO SCH (11:26)
[2021-01-01] MEDS: METOPROLOL TARTRATE 50 MG TAB PO SCH ×2 (11:26→22:09)
[2021-01-01] MEDS: ASCORBIC ACID 500 MG TAB PO SCH ×2 (11:26→22:09)
[2021-01-01] MEDS: MULTIPLE VITAMIN TAB PO SCH (11:26)
[2021-01-01] MEDS: SODIUM CHLOR 0.9% PF (SALINE LOCK) 10ML VIAL/SYR IV SCH ×3 (14:00→22:07)
[2021-01-02 05:00] VITALS: BP 144/65
[2021-01-02] MEDS: InsuLIN REG 1unit/0.01ml Soln (100units/ml) SC SCH ×4 (07:00→22:00)
[2021-01-02] MEDS: SODIUM CHLOR 0.9% PF (SALINE LOCK) 10ML VIAL/SYR IV SCH ×3 (07:02→22:09)
[2021-01-02] MEDS: PRAMIPEXOLE DIHYDROCHLORIDE MO 0.25 MG TAB PO SCH ×3 (07:02→22:08)
[2021-01-02] MEDS: ACCU-CHEK COMFORT CURVE STRIP VI SCH ×4 (07:03→22:09)
[2021-01-02 09:00] VITALS: BP 142/73
[2021-01-02] MEDS: FAMOTIDINE (10MG/ML) 2ML VL IV SCH ×2 (10:00→22:09)
[2021-01-02] MEDS: HEPARIN SODIUM (PORCINE) 5000 UNITS/ML 1ML VIAL SC SCH ×2 (10:43→22:17)
[2021-01-02] MEDS: ZINC SULFATE 220mg CAP or TAB PO SCH (10:44)
[2021-01-02] MEDS: HYDROcodone-ACET 5/325MG TAB PO PRN ×2 (10:45→17:41)
[2021-01-02] MEDS: METOPROLOL TARTRATE 50 MG TAB PO SCH ×2 (10:45→22:09)
[2021-01-02] MEDS: MULTIPLE VITAMIN TAB PO SCH (10:45)
[2021-01-02] MEDS: ASCORBIC ACID 500 MG TAB PO SCH ×2 (10:46→22:09)
[2021-01-02] MEDS: DOXYCYCLINE 100MG/250ML 250 ML IV SCH (12:15)
[2021-01-02] MEDS: cefTRIAXone 1GM/50ML D5W 50 ML IV SCH (12:15)
[2021-01-02] MEDS: ONDANSETRON HCL 4 MG/2 ML VIAL IV PRN (14:31)
[2021-01-02 17:00] VITALS: BP 148/90
[2021-01-02 20:00] LABS: Urine Bacteria NONE SEEN /hpf (None Seen); Urine Blood Negative /uL (Negative); Urine WBC 1 /hpf (0 - 3)
[2021-01-02 22:59] VITALS: BP 148/88
[2021-01-02] MEDS ORDERED: FUROSEMIDE 20 MG/2 ML VIAL ONE (23:50)
[2021-01-03] VITALS (8 sets, daily range): BP systolic 117–159; BP diastolic 52–107
[2021-01-03] MEDS ORDERED: ALPRAZolam 0.25 MG TAB ONE (00:17)
[2021-01-03] MEDS: DOXYCYCLINE 100MG/250ML 250 ML IV SCH ×3 (01:28→23:08)
[2021-01-03] MEDS ORDERED: ALPRAZolam 0.25 MG TAB PO PRN (01:30)
[2021-01-03] MEDS ORDERED: FUROSEMIDE 20 MG/2 ML VIAL IV ONE (01:30)
[2021-01-03] MEDS: HYDROcodone-ACET 5/325MG TAB PO PRN ×3 (02:30→19:08)
[2021-01-03] MEDS ORDERED: LORazepam 2MG/ML-1ML VIAL IV ONE (05:30)
[2021-01-03] MEDS: ACCU-CHEK COMFORT CURVE STRIP VI SCH ×4 (05:32→22:06)
[2021-01-03] MEDS: PRAMIPEXOLE DIHYDROCHLORIDE MO 0.25 MG TAB PO SCH ×3 (05:32→22:27)
[2021-01-03] MEDS: SODIUM CHLOR 0.9% PF (SALINE LOCK) 10ML VIAL/SYR IV SCH ×3 (05:32→22:05)
[2021-01-03] MEDS: InsuLIN REG 1unit/0.01ml Soln (100units/ml) SC SCH ×4 (05:36→22:00)
[2021-01-03 06:52] LABS: BUN/Creatinine Ratio 13.1; Calcium 8.4 mg/dL (8.5-10.1); Magnesium 1.6 mg/dL (1.6-2.6); Phosphorus 2.1 mg/dL (2.5-4.90); Potassium 3.7 mmol/L (3.5-5.1)
[2021-01-03] MEDS: HALOPERIDOL LACTATE 5 MG/ML INJ VIAL IM PRN (09:47)
[2021-01-03] MEDS: FAMOTIDINE (10MG/ML) 2ML VL IV SCH ×2 (09:49→22:06)
[2021-01-03] MEDS: METOPROLOL TARTRATE 50 MG TAB PO SCH ×2 (09:50→22:28)
[2021-01-03] MEDS: cefTRIAXone 1GM/50ML D5W 50 ML IV SCH (09:51)
[2021-01-03] MEDS: MULTIPLE VITAMIN TAB PO SCH (10:00)
[2021-01-03] MEDS: ASCORBIC ACID 500 MG TAB PO SCH ×2 (10:00→22:27)
[2021-01-03] MEDS: ZINC SULFATE 220mg CAP or TAB PO SCH (10:00)
[2021-01-03] MEDS: HEPARIN SODIUM (PORCINE) 5000 UNITS/ML 1ML VIAL SC SCH ×2 (10:07→22:08)
[2021-01-03] MEDS: ALBUTEROL SULF 2.5 MG/0.5ML(0.5%) NEB SOLN NEB PRN (10:10)
[2021-01-03] MEDS: IPRATROPIUM BROM 0.5 MG/2.5ML INH SOL NEB PRN (10:10)
[2021-01-04] MEDS: HALOPERIDOL LACTATE 5 MG/ML INJ VIAL IM PRN ×3 (00:56→23:10)
[2021-01-04 05:00] VITALS: BP 146/76
[2021-01-04] MEDS: SODIUM CHLOR 0.9% PF (SALINE LOCK) 10ML VIAL/SYR IV SCH ×3 (05:16→21:45)
[2021-01-04] MEDS: PRAMIPEXOLE DIHYDROCHLORIDE MO 0.25 MG TAB PO SCH ×3 (05:21→21:46)
[2021-01-04] MEDS: HYDROcodone-ACET 5/325MG TAB PO PRN ×2 (05:22→09:28)
[2021-01-04] MEDS: InsuLIN REG 1unit/0.01ml Soln (100units/ml) SC SCH ×5 (06:47→22:00)
[2021-01-04] MEDS: ACCU-CHEK COMFORT CURVE STRIP VI SCH ×4 (06:47→21:46)
[2021-01-04 09:00] VITALS: BP 150/52
[2021-01-04] MEDS: ZINC SULFATE 220mg CAP or TAB PO SCH (09:28)
[2021-01-04] MEDS: METOPROLOL TARTRATE 50 MG TAB PO SCH ×2 (09:29→21:46)
[2021-01-04] MEDS: MULTIPLE VITAMIN TAB PO SCH (09:29)
[2021-01-04] MEDS: cefTRIAXone 1GM/50ML D5W 50 ML IV SCH (09:30)
[2021-01-04] MEDS: FAMOTIDINE (10MG/ML) 2ML VL IV SCH ×2 (09:30→21:45)
[2021-01-04] MEDS: ASCORBIC ACID 500 MG TAB PO SCH ×2 (09:30→21:46)
[2021-01-04] MEDS: HEPARIN SODIUM (PORCINE) 5000 UNITS/ML 1ML VIAL SC SCH ×2 (09:33→21:47)
[2021-01-04] MEDS: MORPHINE SULFATE 4 MG/ML SYR/VIAL IV PRN ×2 (11:33→19:36)
[2021-01-04] MEDS: DOXYCYCLINE 100MG/250ML 250 ML IV SCH ×2 (11:33→23:10)
[2021-01-04 13:00] VITALS: BP 147/80
[2021-01-04 17:36] VITALS: BP 163/97
[2021-01-04] MEDS: hydrALAZINE HCL 20 MG/ML VL IV PRN (18:46)
[2021-01-04] MEDS: ALBUTEROL SULF 2.5 MG/0.5ML(0.5%) NEB SOLN NEB PRN (19:58)
[2021-01-04] MEDS: IPRATROPIUM BROM 0.5 MG/2.5ML INH SOL NEB PRN (19:58)
[2021-01-04 20:00] VITALS: BP 132/79
[2021-01-04 21:57] VITALS: BP 132/79
[2021-01-05] MEDS: MORPHINE SULFATE 4 MG/ML SYR/VIAL IV PRN ×3 (01:24→14:55)
[2021-01-05 05:00] VITALS: BP 130/78
[2021-01-05] MEDS: SODIUM CHLOR 0.9% PF (SALINE LOCK) 10ML VIAL/SYR IV SCH ×3 (06:10→22:11)
[2021-01-05] MEDS: ACCU-CHEK COMFORT CURVE STRIP VI SCH ×4 (06:10→22:11)
[2021-01-05] MEDS: PRAMIPEXOLE DIHYDROCHLORIDE MO 0.25 MG TAB PO SCH ×3 (06:10→22:10)
[2021-01-05] MEDS: InsuLIN REG 1unit/0.01ml Soln (100units/ml) SC SCH ×4 (06:10→22:00)
[2021-01-05] MEDS: FAMOTIDINE (10MG/ML) 2ML VL IV SCH ×2 (08:45→22:09)
[2021-01-05] MEDS: cefTRIAXone 1GM/50ML D5W 50 ML IV SCH (08:45)
[2021-01-05] MEDS: MULTIPLE VITAMIN TAB PO SCH (08:46)
[2021-01-05] MEDS: ASCORBIC ACID 500 MG TAB PO SCH ×2 (08:46→22:10)
[2021-01-05] MEDS: ZINC SULFATE 220mg CAP or TAB PO SCH (08:46)
[2021-01-05] MEDS: HEPARIN SODIUM (PORCINE) 5000 UNITS/ML 1ML VIAL SC SCH ×2 (08:56→22:00)
[2021-01-05] MEDS: METOPROLOL TARTRATE 50 MG TAB PO SCH ×2 (08:57→22:10)
[2021-01-05 09:00] VITALS: BP 144/70
[2021-01-05] MEDS: DOXYCYCLINE 100MG/250ML 250 ML IV SCH ×2 (11:00→23:24)
[2021-01-05] MEDS: HYDROcodone-ACET 5/325MG TAB PO PRN (11:03)
[2021-01-05] MEDS ORDERED: LACTULOSE 20Gm/30ML SOLN PO ONE (11:30)
[2021-01-05 12:32] VITALS: BP 152/84
[2021-01-05 18:39] VITALS: BP 142/80
[2021-01-05] MEDS: hydrALAZINE HCL 20 MG/ML VL IV PRN (23:36)
[2021-01-06] MEDS: HYDROcodone-ACET 5/325MG TAB PO PRN (05:03)
[2021-01-06] MEDS: SODIUM CHLOR 0.9% PF (SALINE LOCK) 10ML VIAL/SYR IV SCH ×3 (06:10→22:57)
[2021-01-06] MEDS: ACCU-CHEK COMFORT CURVE STRIP VI SCH ×4 (06:11→23:00)
[2021-01-06] MEDS: InsuLIN REG 1unit/0.01ml Soln (100units/ml) SC SCH ×4 (06:11→23:01)
[2021-01-06] MEDS: PRAMIPEXOLE DIHYDROCHLORIDE MO 0.25 MG TAB PO SCH ×3 (06:11→22:58)
[2021-01-06 07:28] LABS: Eosinophils # (auto) 0.3 10 ^3/uL (0-0.8); Eosinophils % (auto) 2.8 % (0.0-7.0); Nucleated Red Blood Cells % 0.2 %
[2021-01-06 07:34] LABS: Basophils # (auto) 0.1 10 ^3/uL (0-0.2); Basophils % (auto) 0.6 % (0.0-2.0); Hematocrit 38.4 % (41.0-53.0); Hemoglobin 12.4 g/dL (13.5-17.5); Lymphocytes # (auto) 0.8 10 ^3/uL (0.4-5.4); Lymphocytes % (auto) 9.1 % (10.0-50.0); Mean Corpuscular Hemoglobin 24.4 pg (28.0-32.0); Mean Corpuscular Hgb Conc. 32.3 g/dL (32.0-36.0); Mean Corpuscular Volume 75.5 fL (80.0-100.0); Monocytes # (auto) 0.9 10 ^3/uL (0-1.3); Monocytes % (auto) 9.5 % (0.0-12.0); Neutrophils # (auto) 7.1 10 ^3/uL (1.6-8.6); Platelet Count (auto) 299 10^3/uL (140-450); Red Blood Cells 5.09 10^6/uL (4.5-5.90); Red Cell Distribution Width 17.7 % (11.8-14.3); White Blood Cell 9.1 10^3/uL (4.4-10.8)
[2021-01-06 08:11] LABS: BUN/Creatinine Ratio 11.1; Calcium 9.3 mg/dL (8.5-10.1); Potassium 3.6 mmol/L (3.5-5.1)
[2021-01-06] MEDS: FAMOTIDINE (10MG/ML) 2ML VL IV SCH (10:00)
[2021-01-06 10:15] VITALS: BP 160/85
[2021-01-06 10:47] VITALS: BP 160/85
[2021-01-06] MEDS: cefTRIAXone 1GM/50ML D5W 50 ML IV SCH (12:12)
[2021-01-06] MEDS: ASCORBIC ACID 500 MG TAB PO SCH ×2 (12:13→22:58)
[2021-01-06] MEDS: METOPROLOL TARTRATE 50 MG TAB PO SCH ×2 (12:16→22:58)
[2021-01-06] MEDS: ZINC SULFATE 220mg CAP or TAB PO SCH (12:16)
[2021-01-06] MEDS: DOXYCYCLINE 100MG/250ML 250 ML IV SCH ×2 (12:18→23:02)
[2021-01-06] MEDS: HEPARIN SODIUM (PORCINE) 5000 UNITS/ML 1ML VIAL SC SCH ×2 (12:25→23:00)
[2021-01-06] MEDS: MULTIPLE VITAMIN TAB PO SCH (12:52)
[2021-01-06 20:00] VITALS: BP 141/75
[2021-01-06] MEDS: MORPHINE SULFATE 4 MG/ML SYR/VIAL IV PRN (23:00)
[2021-01-07] MEDS: FAMOTIDINE (10MG/ML) 2ML VL IV SCH ×3 (00:15→21:22)
[2021-01-07] MEDS: HALOPERIDOL LACTATE 5 MG/ML INJ VIAL IM PRN (03:53)
[2021-01-07] MEDS: SODIUM CHLOR 0.9% PF (SALINE LOCK) 10ML VIAL/SYR IV SCH ×3 (05:27→21:23)
[2021-01-07] MEDS: PRAMIPEXOLE DIHYDROCHLORIDE MO 0.25 MG TAB PO SCH ×3 (05:27→21:24)
[2021-01-07 05:30] VITALS: BP 148/85
[2021-01-07] MEDS: InsuLIN REG 1unit/0.01ml Soln (100units/ml) SC SCH ×4 (06:30→21:26)
[2021-01-07] MEDS: ACCU-CHEK COMFORT CURVE STRIP VI SCH ×4 (06:31→21:26)
[2021-01-07] MEDS ORDERED: RIVAROXABAN 15 MG TAB PO SCH (08:00)
[2021-01-07 09:00] VITALS: BP 128/72
[2021-01-07] MEDS: ZINC SULFATE 220mg CAP or TAB PO SCH (10:34)
[2021-01-07] MEDS: cefTRIAXone 1GM/50ML D5W 50 ML IV SCH (10:34)
[2021-01-07] MEDS: MULTIPLE VITAMIN TAB PO SCH (10:35)
[2021-01-07] MEDS: METOPROLOL TARTRATE 50 MG TAB PO SCH ×2 (10:35→21:23)
[2021-01-07] MEDS: ASCORBIC ACID 500 MG TAB PO SCH ×2 (10:35→21:24)
[2021-01-07] MEDS: HEPARIN SODIUM (PORCINE) 5000 UNITS/ML 1ML VIAL SC SCH ×2 (11:38→21:25)
[2021-01-07] MEDS: DOXYCYCLINE 100MG/250ML 250 ML IV SCH ×2 (11:38→21:31)
[2021-01-07] MEDS: HYDROcodone-ACET 5/325MG TAB PO PRN (11:44)
[2021-01-07] MEDS: LORazepam 2MG/ML-1ML VIAL IV PRN (16:21)
[2021-01-07 17:00] VITALS: BP 134/87
[2021-01-07 20:00] VITALS: BP 150/84
[2021-01-07] MEDS: HYDROmorphone HCL 2 MG/ML VL IV PRN (21:32)
[2021-01-07 22:02] VITALS: BP 150/84
[2021-01-08] MEDS: HYDROcodone-ACET 10/325MG TAB PO PRN ×2 (02:02→17:26)
[2021-01-08] MEDS: HYDROmorphone HCL 2 MG/ML VL IV PRN ×3 (04:53→13:36)
[2021-01-08 05:08] VITALS: BP 133/80
[2021-01-08] MEDS: SODIUM CHLOR 0.9% PF (SALINE LOCK) 10ML VIAL/SYR IV SCH ×3 (05:12→21:45)
[2021-01-08] MEDS: PRAMIPEXOLE DIHYDROCHLORIDE MO 0.25 MG TAB PO SCH ×3 (05:13→21:46)
[2021-01-08] MEDS: InsuLIN REG 1unit/0.01ml Soln (100units/ml) SC SCH ×4 (06:11→22:24)
[2021-01-08] MEDS: ACCU-CHEK COMFORT CURVE STRIP VI SCH ×4 (06:11→22:14)
[2021-01-08] MEDS ORDERED: HEPARIN SODIUM (PORCINE) 5000 UNITS/ML 1ML VIAL ONE (07:54)
[2021-01-08] MEDS: cefTRIAXone 1GM/50ML D5W 50 ML IV SCH (08:56)
[2021-01-08 09:00] VITALS: BP 128/79
[2021-01-08] MEDS: FAMOTIDINE (10MG/ML) 2ML VL IV SCH ×2 (09:29→21:42)
[2021-01-08] MEDS: ZINC SULFATE 220mg CAP or TAB PO SCH (09:35)
[2021-01-08] MEDS: MULTIPLE VITAMIN TAB PO SCH (09:35)
[2021-01-08] MEDS: ASCORBIC ACID 500 MG TAB PO SCH ×2 (09:36→21:46)
[2021-01-08] MEDS: METOPROLOL TARTRATE 50 MG TAB PO SCH ×2 (09:40→23:30)
[2021-01-08] MEDS: HEPARIN SODIUM (PORCINE) 5000 UNITS/ML 1ML VIAL SC SCH ×2 (09:42→21:48)
[2021-01-08] MEDS: DOXYCYCLINE 100MG/250ML 250 ML IV SCH ×2 (11:35→23:31)
[2021-01-08] MEDS: LORazepam 2MG/ML-1ML VIAL IV PRN ×2 (13:08→21:09)
[2021-01-08 13:10] VITALS: BP 157/93
[2021-01-08 17:15] VITALS: BP 111/61
[2021-01-08 21:55] VITALS: BP 124/74
[2021-01-09] VITALS (7 sets, daily range): BP systolic 124–136; BP diastolic 72–80
[2021-01-09] MEDS: PRAMIPEXOLE DIHYDROCHLORIDE MO 0.25 MG TAB PO SCH ×3 (05:40→22:34)
[2021-01-09] MEDS: SODIUM CHLOR 0.9% PF (SALINE LOCK) 10ML VIAL/SYR IV SCH ×3 (05:40→22:33)
[2021-01-09] MEDS: HYDROmorphone HCL 2 MG/ML VL IV PRN ×2 (05:41→12:31)
[2021-01-09] MEDS: ACCU-CHEK COMFORT CURVE STRIP VI SCH ×4 (06:29→22:35)
[2021-01-09] MEDS: InsuLIN REG 1unit/0.01ml Soln (100units/ml) SC SCH ×4 (06:30→22:00)
[2021-01-09] MEDS: FAMOTIDINE (10MG/ML) 2ML VL IV SCH (10:18)
[2021-01-09] MEDS: HEPARIN SODIUM (PORCINE) 5000 UNITS/ML 1ML VIAL SC SCH (10:18)
[2021-01-09] MEDS: LORazepam 2MG/ML-1ML VIAL IV PRN (10:18)
[2021-01-09] MEDS: ZINC SULFATE 220mg CAP or TAB PO SCH (10:19)
[2021-01-09] MEDS: cefTRIAXone 1GM/50ML D5W 50 ML IV SCH (10:20)
[2021-01-09] MEDS: ASCORBIC ACID 500 MG TAB PO SCH ×2 (10:20→22:35)
[2021-01-09] MEDS: METOPROLOL TARTRATE 50 MG TAB PO SCH ×2 (10:20→22:34)
[2021-01-09] MEDS: MULTIPLE VITAMIN TAB PO SCH (10:20)
[2021-01-09] MEDS: DOXYCYCLINE 100MG/250ML 250 ML IV SCH ×2 (12:33→22:56)
[2021-01-09] MEDS ORDERED: ENOXAPARIN SOD 100 MG/1 ML SYRINGE SC SCH (22:00)
[2021-01-09] MEDS: ALBUTEROL SULF 2.5 MG/0.5ML(0.5%) NEB SOLN NEB PRN (23:14)
[2021-01-09] MEDS: IPRATROPIUM BROM 0.5 MG/2.5ML INH SOL NEB PRN (23:15)
[2021-01-09] MEDS: HYDROcodone-ACET 10/325MG TAB PO PRN (23:19)
[2021-01-10] MEDS: HYDROmorphone HCL 2 MG/ML VL IV PRN ×3 (03:47→23:05)
[2021-01-10 05:55] LABS: Basophils # (auto) 0.1 10 ^3/uL (0-0.2); Eosinophils # (auto) 0.3 10 ^3/uL (0-0.8); Lymphocytes # (auto) 0.8 10 ^3/uL (0.4-5.4); Mean Corpuscular Hemoglobin 24.9 pg (28.0-32.0); Mean Corpuscular Hgb Conc. 32.7 g/dL (32.0-36.0); Neutrophils # (auto) 4.3 10 ^3/uL (1.6-8.6); White Blood Cell 6.3 10^3/uL (4.4-10.8)
[2021-01-10 05:58] LABS: Basophils % (auto) 1.2 % (0.0-2.0); Eosinophils % (auto) 4.9 % (0.0-7.0); Hematocrit 37.4 % (41.0-53.0); Hemoglobin 12.2 g/dL (13.5-17.5); Lymphocytes % (auto) 12.4 % (10.0-50.0); Monocytes # (auto) 0.8 10 ^3/uL (0-1.3); Monocytes % (auto) 12.9 % (0.0-12.0); Neutrophils % (auto) 68.6 % (37.0-80.0); Nucleated Red Blood Cells % 0.3 %; Platelet Count (auto) 203 10^3/uL (140-450); Red Blood Cells 4.91 10^6/uL (4.5-5.90); Red Cell Distribution Width 18.2 % (11.8-14.3)
[2021-01-10] MEDS: InsuLIN REG 1unit/0.01ml Soln (100units/ml) SC SCH ×4 (06:18→22:00)
[2021-01-10] MEDS: ACCU-CHEK COMFORT CURVE STRIP VI SCH ×4 (06:19→21:59)
[2021-01-10] MEDS: SODIUM CHLOR 0.9% PF (SALINE LOCK) 10ML VIAL/SYR IV SCH ×3 (06:39→21:59)
[2021-01-10] MEDS: PRAMIPEXOLE DIHYDROCHLORIDE MO 0.25 MG TAB PO SCH ×3 (06:39→21:52)
[2021-01-10 09:00] VITALS: BP 124/71
[2021-01-10] MEDS: cefTRIAXone 1GM/50ML D5W 50 ML IV SCH (10:37)
[2021-01-10] MEDS: FAMOTIDINE (10MG/ML) 2ML VL IV SCH (10:38)
[2021-01-10] MEDS: LORazepam 2MG/ML-1ML VIAL IV PRN (10:38)
[2021-01-10] MEDS: ENOXAPARIN SOD 40 MG/0.4 ML SYRINGE SC SCH (10:39)
[2021-01-10] MEDS: METOPROLOL TARTRATE 50 MG TAB PO SCH ×2 (10:55→21:52)
[2021-01-10] MEDS: MULTIPLE VITAMIN TAB PO SCH (10:55)
[2021-01-10] MEDS: ASCORBIC ACID 500 MG TAB PO SCH ×2 (10:55→21:52)
[2021-01-10] MEDS: ZINC SULFATE 220mg CAP or TAB PO SCH (10:56)
[2021-01-10] MEDS: HYDROcodone-ACET 10/325MG TAB PO PRN ×2 (11:05→17:35)
[2021-01-10] MEDS: DOXYCYCLINE 100MG/250ML 250 ML IV SCH (11:20)
[2021-01-10 13:00] VITALS: BP 114/57
[2021-01-10 17:00] VITALS: BP 143/87
[2021-01-10 22:04] VITALS: BP 125/63
[2021-01-11] MEDS: LORazepam 2MG/ML-1ML VIAL IV PRN ×2 (00:13→15:36)
[2021-01-11] MEDS: HYDROcodone-ACET 10/325MG TAB PO PRN (03:45)
[2021-01-11 05:03] VITALS: BP 119/50
[2021-01-11] MEDS: SODIUM CHLOR 0.9% PF (SALINE LOCK) 10ML VIAL/SYR IV SCH ×3 (05:16→22:00)
[2021-01-11] MEDS: ACCU-CHEK COMFORT CURVE STRIP VI SCH ×4 (06:24→22:00)
[2021-01-11] MEDS: PRAMIPEXOLE DIHYDROCHLORIDE MO 0.25 MG TAB PO SCH ×2 (06:25→15:05)
[2021-01-11] MEDS: InsuLIN REG 1unit/0.01ml Soln (100units/ml) SC SCH ×4 (06:25→22:00)
[2021-01-11] MEDS: ALBUTEROL SULF 2.5 MG/0.5ML(0.5%) NEB SOLN NEB PRN (06:56)
[2021-01-11] MEDS: IPRATROPIUM BROM 0.5 MG/2.5ML INH SOL NEB PRN (06:57)
[2021-01-11 08:00] VITALS: BP 117/68
[2021-01-11] MEDS: ENOXAPARIN SOD 40 MG/0.4 ML SYRINGE SC SCH (09:06)
[2021-01-11] MEDS: ZINC SULFATE 220mg CAP or TAB PO SCH (09:07)
[2021-01-11] MEDS: METOPROLOL TARTRATE 50 MG TAB PO SCH ×2 (09:07→22:00)
[2021-01-11] MEDS: FAMOTIDINE (10MG/ML) 2ML VL IV SCH (09:07)
[2021-01-11] MEDS: ASCORBIC ACID 500 MG TAB PO SCH (09:07)
[2021-01-11] MEDS: MULTIPLE VITAMIN TAB PO SCH (09:07)
[2021-01-11] MEDS: HYDROmorphone HCL 2 MG/ML VL IV PRN (09:14)
[2021-01-11] MEDS ORDERED: fentaNYL CITRATE 100 MCG/2 ML VL IV ONE (10:30)
[2021-01-11] MEDS ORDERED: MIDAZOLAM HCL 1MG/1ML-2 ML VIAL IV ONE (10:30)
[2021-01-11] MEDS ORDERED: LIDOCAINE 2%HCL (LOCAL ANESTH.) INJ 20ML MDV ONE (10:32)
[2021-01-11] MEDS ORDERED: fentaNYL CITRATE 100 MCG/2 ML VL ONE (10:34)
[2021-01-11] MEDS ORDERED: MIDAZOLAM HCL 1MG/1ML-2 ML VIAL ONE (10:34)
[2021-01-11 12:13] VITALS: BP 110/59
[2021-01-11 16:56] VITALS: BP 149/68
[2021-01-11 22:00] VITALS: BP 112/57
[2021-01-12] MEDS: ASCORBIC ACID 500 MG TAB PO SCH ×3 (00:43→23:01)
[2021-01-12] MEDS: PRAMIPEXOLE DIHYDROCHLORIDE MO 0.25 MG TAB PO SCH ×4 (00:43→23:01)
[2021-01-12 05:00] VITALS: BP 108/59
[2021-01-12] MEDS: SODIUM CHLOR 0.9% PF (SALINE LOCK) 10ML VIAL/SYR IV SCH ×3 (06:00→22:07)
[2021-01-12] MEDS: ACCU-CHEK COMFORT CURVE STRIP VI SCH ×4 (07:03→22:07)
[2021-01-12] MEDS: InsuLIN REG 1unit/0.01ml Soln (100units/ml) SC SCH ×4 (07:05→22:13)
[2021-01-12 09:00] VITALS: BP 148/73
[2021-01-12] MEDS: MULTIPLE VITAMIN TAB PO SCH (11:36)
[2021-01-12] MEDS: ENOXAPARIN SOD 40 MG/0.4 ML SYRINGE SC SCH (11:36)
[2021-01-12] MEDS: ZINC SULFATE 220mg CAP or TAB PO SCH (11:36)
[2021-01-12] MEDS: FAMOTIDINE (10MG/ML) 2ML VL IV SCH (11:37)
[2021-01-12] MEDS: METOPROLOL TARTRATE 50 MG TAB PO SCH ×2 (11:37→23:01)
[2021-01-12] MEDS: HYDROmorphone HCL 2 MG/ML VL IV PRN ×2 (11:38→20:48)
[2021-01-12 13:00] VITALS: BP 121/79
[2021-01-12 14:21] VITALS: BP 121/79
[2021-01-12 17:00] VITALS: BP 109/64
[2021-01-13] MEDS: LORazepam 2MG/ML-1ML VIAL IV PRN ×2 (02:54→21:38)
[2021-01-13] MEDS: SODIUM CHLOR 0.9% PF (SALINE LOCK) 10ML VIAL/SYR IV SCH ×3 (06:00→21:36)
[2021-01-13] MEDS: PRAMIPEXOLE DIHYDROCHLORIDE MO 0.25 MG TAB PO SCH ×3 (06:00→21:37)
[2021-01-13] MEDS: ACCU-CHEK COMFORT CURVE STRIP VI SCH ×4 (07:00→21:21)
[2021-01-13] MEDS: InsuLIN REG 1unit/0.01ml Soln (100units/ml) SC SCH ×4 (07:00→21:23)
[2021-01-13 09:00] VITALS: BP 97/58
[2021-01-13] MEDS: ENOXAPARIN SOD 40 MG/0.4 ML SYRINGE SC SCH (10:14)
[2021-01-13] MEDS: ASCORBIC ACID 500 MG TAB PO SCH ×2 (10:15→21:37)
[2021-01-13] MEDS: ZINC SULFATE 220mg CAP or TAB PO SCH (10:15)
[2021-01-13] MEDS: HYDROmorphone HCL 2 MG/ML VL IV PRN (10:15)
[2021-01-13] MEDS: MULTIPLE VITAMIN TAB PO SCH (10:15)
[2021-01-13] MEDS: METOPROLOL TARTRATE 50 MG TAB PO SCH ×2 (10:28→21:36)
[2021-01-13] MEDS: FAMOTIDINE (10MG/ML) 2ML VL IV SCH (10:29)
[2021-01-13 13:00] VITALS: BP 148/71
[2021-01-13 17:00] VITALS: BP 99/57
[2021-01-13 18:32] LABS: BUN/Creatinine Ratio 18.2; Calcium 8.9 mg/dL (8.5-10.1); Potassium 4.1 mmol/L (3.5-5.1)
[2021-01-13 21:33] VITALS: BP 140/75
[2021-01-14] MEDS: HYDROmorphone HCL 2 MG/ML VL IV PRN ×3 (01:49→19:51)
[2021-01-14 05:35] VITALS: BP 117/69
[2021-01-14] MEDS: ACCU-CHEK COMFORT CURVE STRIP VI SCH ×4 (06:04→22:00)
[2021-01-14] MEDS: PRAMIPEXOLE DIHYDROCHLORIDE MO 0.25 MG TAB PO SCH ×3 (06:04→22:00)
[2021-01-14] MEDS: SODIUM CHLOR 0.9% PF (SALINE LOCK) 10ML VIAL/SYR IV SCH ×3 (06:04→22:00)
[2021-01-14] MEDS: InsuLIN REG 1unit/0.01ml Soln (100units/ml) SC SCH ×4 (06:06→22:00)
[2021-01-14 07:51] LABS: Basophils # (auto) 0.1 10 ^3/uL (0-0.2); Basophils % (auto) 0.8 % (0.0-2.0); Eosinophils # (auto) 0.3 10 ^3/uL (0-0.8); Eosinophils % (auto) 2.9 % (0.0-7.0); Hematocrit 38.8 % (41.0-53.0); Hemoglobin 12.5 g/dL (13.5-17.5); Lymphocytes # (auto) 1.5 10 ^3/uL (0.4-5.4); Lymphocytes % (auto) 14.6 % (10.0-50.0); Mean Corpuscular Hemoglobin 24.4 pg (28.0-32.0); Mean Corpuscular Hgb Conc. 32.1 g/dL (32.0-36.0); Mean Corpuscular Volume 76.1 fL (80.0-100.0); Monocytes # (auto) 0.9 10 ^3/uL (0-1.3); Monocytes % (auto) 9.4 % (0.0-12.0); Neutrophils # (auto) 7.2 10 ^3/uL (1.6-8.6); Neutrophils % (auto) 72.3 % (37.0-80.0); Nucleated Red Blood Cells % 0.1 %; Platelet Count (auto) 317 10^3/uL (140-450); Red Cell Distribution Width 18.2 % (11.8-14.3); White Blood Cell 9.9 10^3/uL (4.4-10.8)
[2021-01-14 09:00] VITALS: BP 131/85
[2021-01-14] MEDS: MULTIPLE VITAMIN TAB PO SCH (09:40)
[2021-01-14] MEDS: ASCORBIC ACID 500 MG TAB PO SCH ×2 (09:40→22:00)
[2021-01-14] MEDS: FAMOTIDINE (10MG/ML) 2ML VL IV SCH (09:40)
[2021-01-14] MEDS: ZINC SULFATE 220mg CAP or TAB PO SCH (09:40)
[2021-01-14] MEDS: ENOXAPARIN SOD 40 MG/0.4 ML SYRINGE SC SCH (09:40)
[2021-01-14] MEDS: METOPROLOL TARTRATE 50 MG TAB PO SCH ×2 (09:41→22:00)
[2021-01-14] MEDS: ALBUTEROL SULF 2.5 MG/0.5ML(0.5%) NEB SOLN NEB PRN (10:05)
[2021-01-14] MEDS: IPRATROPIUM BROM 0.5 MG/2.5ML INH SOL NEB PRN (10:05)
[2021-01-14 12:46] VITALS: BP 130/80
[2021-01-14 17:10] VITALS: BP 103/65
[2021-01-14 17:15] VITALS: BP 143/78
[2021-01-14] MEDS: LORazepam 2MG/ML-1ML VIAL IV PRN (21:38)
[2021-01-14 22:00] VITALS: BP 105/66
[2021-01-15] MEDS: HYDROmorphone HCL 2 MG/ML VL IV PRN (02:34)
[2021-01-15 05:00] VITALS: BP 147/80
[2021-01-15] MEDS: PRAMIPEXOLE DIHYDROCHLORIDE MO 0.25 MG TAB PO SCH ×3 (06:00→22:04)
[2021-01-15] MEDS: SODIUM CHLOR 0.9% PF (SALINE LOCK) 10ML VIAL/SYR IV SCH ×3 (06:00→21:52)
[2021-01-15] MEDS: InsuLIN REG 1unit/0.01ml Soln (100units/ml) SC SCH ×4 (06:29→21:51)
[2021-01-15] MEDS: ACCU-CHEK COMFORT CURVE STRIP VI SCH ×4 (06:29→22:04)
[2021-01-15 08:57] VITALS: BP 147/80
[2021-01-15 09:00] VITALS: BP 139/81
[2021-01-15] MEDS: MULTIPLE VITAMIN TAB PO SCH (10:23)
[2021-01-15] MEDS: ASCORBIC ACID 500 MG TAB PO SCH ×2 (10:23→22:04)
[2021-01-15] MEDS: ENOXAPARIN SOD 40 MG/0.4 ML SYRINGE SC SCH (10:23)
[2021-01-15] MEDS: ZINC SULFATE 220mg CAP or TAB PO SCH (10:24)
[2021-01-15] MEDS: FAMOTIDINE (10MG/ML) 2ML VL IV SCH (10:25)
[2021-01-15] MEDS: METOPROLOL TARTRATE 50 MG TAB PO SCH ×2 (10:27→22:04)
[2021-01-15 13:00] VITALS: BP 103/69
[2021-01-15 17:00] VITALS: BP 109/74
[2021-01-15] MEDS: LORazepam 2MG/ML-1ML VIAL IV PRN (20:45)
[2021-01-15 22:00] VITALS: BP 110/62
[2021-01-16 00:10] VITALS: BP 110/72
[2021-01-16 05:00] VITALS: BP 113/59
[2021-01-16] MEDS: SODIUM CHLOR 0.9% PF (SALINE LOCK) 10ML VIAL/SYR IV SCH ×3 (05:35→21:51)
[2021-01-16] MEDS: PRAMIPEXOLE DIHYDROCHLORIDE MO 0.25 MG TAB PO SCH ×3 (05:36→21:52)
[2021-01-16] MEDS: ACCU-CHEK COMFORT CURVE STRIP VI SCH ×4 (06:13→21:23)
[2021-01-16] MEDS: InsuLIN REG 1unit/0.01ml Soln (100units/ml) SC SCH ×4 (06:14→21:23)
[2021-01-16] MEDS: LORazepam 2MG/ML-1ML VIAL IV PRN ×2 (09:03→22:44)
[2021-01-16] MEDS: FAMOTIDINE (10MG/ML) 2ML VL IV SCH (09:03)
[2021-01-16] MEDS: ENOXAPARIN SOD 40 MG/0.4 ML SYRINGE SC SCH (09:04)
[2021-01-16] MEDS: METOPROLOL TARTRATE 50 MG TAB PO SCH ×2 (09:04→21:52)
[2021-01-16] MEDS: ASCORBIC ACID 500 MG TAB PO SCH ×2 (09:04→21:53)
[2021-01-16] MEDS: ZINC SULFATE 220mg CAP or TAB PO SCH (09:04)
[2021-01-16] MEDS: MULTIPLE VITAMIN TAB PO SCH (09:04)
[2021-01-16] MEDS: ACETAMINOPHEN 325 MG TAB PO PRN (09:06)
[2021-01-16 09:25] VITALS: BP 116/61
[2021-01-16 12:25] LABS: BUN/Creatinine Ratio 17.8; Calcium 8.5 mg/dL (8.5-10.1)
[2021-01-16 12:34] VITALS: BP 101/77
[2021-01-16 17:24] VITALS: BP 88/49
[2021-01-16 22:00] VITALS: BP 124/79
[2021-01-17] MEDS: HALOPERIDOL LACTATE 5 MG/ML INJ VIAL IM PRN (04:34)
[2021-01-17 05:09] VITALS: BP 127/91
[2021-01-17] MEDS: SODIUM CHLOR 0.9% PF (SALINE LOCK) 10ML VIAL/SYR IV SCH ×2 (05:18→12:35)
[2021-01-17] MEDS: ACCU-CHEK COMFORT CURVE STRIP VI SCH ×5 (05:59→22:00)
[2021-01-17] MEDS: PRAMIPEXOLE DIHYDROCHLORIDE MO 0.25 MG TAB PO SCH ×3 (06:00→23:17)
[2021-01-17] MEDS: InsuLIN REG 1unit/0.01ml Soln (100units/ml) SC SCH ×4 (06:58→23:25)
[2021-01-17 07:24] LABS: Basophils # (auto) 0.1 10 ^3/uL (0-0.2); Basophils % (auto) 0.9 % (0.0-2.0); Eosinophils # (auto) 0.3 10 ^3/uL (0-0.8)
[2021-01-17 07:28] LABS: Eosinophils % (auto) 2.9 % (0.0-7.0); Hematocrit 39.5 % (41.0-53.0); Hemoglobin 12.7 g/dL (13.5-17.5); Lymphocytes % (auto) 10.6 % (10.0-50.0); Mean Corpuscular Hemoglobin 24.7 pg (28.0-32.0); Mean Corpuscular Hgb Conc. 32.2 g/dL (32.0-36.0); Mean Corpuscular Volume 76.5 fL (80.0-100.0); Monocytes # (auto) 0.8 10 ^3/uL (0-1.3); Monocytes % (auto) 8.7 % (0.0-12.0); Neutrophils # (auto) 7.2 10 ^3/uL (1.6-8.6); Neutrophils % (auto) 76.9 % (37.0-80.0); Nucleated Red Blood Cells % 0.2 %; Platelet Count (auto) 245 10^3/uL (140-450); Red Blood Cells 5.16 10^6/uL (4.5-5.90); White Blood Cell 9.3 10^3/uL (4.4-10.8)
[2021-01-17 07:56] LABS: BUN/Creatinine Ratio 17.8; Calcium 9.2 mg/dL (8.5-10.1); Potassium 3.7 mmol/L (3.5-5.1)
[2021-01-17 09:00] VITALS: BP 112/69
[2021-01-17] MEDS: ZINC SULFATE 220mg CAP or TAB PO SCH (10:28)
[2021-01-17] MEDS: FAMOTIDINE (10MG/ML) 2ML VL IV SCH (10:28)
[2021-01-17] MEDS: METOPROLOL TARTRATE 50 MG TAB PO SCH ×2 (10:29→23:17)
[2021-01-17] MEDS: ENOXAPARIN SOD 40 MG/0.4 ML SYRINGE SC SCH (10:30)
[2021-01-17] MEDS: ASCORBIC ACID 500 MG TAB PO SCH ×2 (10:30→23:18)
[2021-01-17] MEDS: MULTIPLE VITAMIN TAB PO SCH (10:31)
[2021-01-17] MEDS: HYDROmorphone HCL 2 MG/ML VL IV PRN ×2 (12:42→18:58)
[2021-01-17 13:02] VITALS: BP 104/67
[2021-01-17 14:02] LABS: INR 1.58 (0.9-1.15); Partial Thromboplastin Time 36.7 sec (23.0-31.2)
[2021-01-17 17:00] VITALS: BP 108/62
[2021-01-17 21:42] VITALS: BP 142/69
[2021-01-18 04:43] VITALS: BP 124/76
[2021-01-18] MEDS: ACCU-CHEK COMFORT CURVE STRIP VI SCH ×4 (06:13→23:04)
[2021-01-18] MEDS: SODIUM CHLOR 0.9% PF (SALINE LOCK) 10ML VIAL/SYR IV SCH ×3 (06:18→15:27)
[2021-01-18] MEDS: PRAMIPEXOLE DIHYDROCHLORIDE MO 0.25 MG TAB PO SCH ×3 (06:24→22:35)
[2021-01-18] MEDS: InsuLIN REG 1unit/0.01ml Soln (100units/ml) SC SCH ×4 (06:32→23:02)
[2021-01-18 07:13] LABS: Basophils # (auto) 0.1 10 ^3/uL (0-0.2); Basophils % (auto) 0.8 % (0.0-2.0); Eosinophils # (auto) 0.2 10 ^3/uL (0-0.8); Red Blood Cells 5.12 10^6/uL (4.5-5.90)
[2021-01-18 07:16] LABS: Eosinophils % (auto) 2.4 % (0.0-7.0); Hematocrit 38.9 % (41.0-53.0); Hemoglobin 12.6 g/dL (13.5-17.5); Lymphocytes % (auto) 9.5 % (10.0-50.0); Mean Corpuscular Hemoglobin 24.6 pg (28.0-32.0); Mean Corpuscular Hgb Conc. 32.5 g/dL (32.0-36.0); Mean Corpuscular Volume 75.9 fL (80.0-100.0); Monocytes # (auto) 0.8 10 ^3/uL (0-1.3); Monocytes % (auto) 7.7 % (0.0-12.0); Neutrophils # (auto) 8.1 10 ^3/uL (1.6-8.6); Neutrophils % (auto) 79.6 % (37.0-80.0); Nucleated Red Blood Cells % 0.1 %; Platelet Count (auto) 281 10^3/uL (140-450); Red Cell Distribution Width 17.8 % (11.8-14.3); White Blood Cell 10.2 10^3/uL (4.4-10.8)
[2021-01-18 07:31] LABS: BUN/Creatinine Ratio 16.8; Calcium 8.7 mg/dL (8.5-10.1)
[2021-01-18 09:00] VITALS: BP 103/65
[2021-01-18] MEDS: ENOXAPARIN SOD 40 MG/0.4 ML SYRINGE SC SCH (10:00)
[2021-01-18] MEDS: ASCORBIC ACID 500 MG TAB PO SCH ×2 (10:33→22:35)
[2021-01-18] MEDS: FAMOTIDINE (10MG/ML) 2ML VL IV SCH (10:33)
[2021-01-18] MEDS: ZINC SULFATE 220mg CAP or TAB PO SCH (10:33)
[2021-01-18] MEDS: METOPROLOL TARTRATE 50 MG TAB PO SCH ×2 (10:34→23:01)
[2021-01-18] MEDS: MULTIPLE VITAMIN TAB PO SCH (10:34)
[2021-01-18 12:31] VITALS: BP 103/64
[2021-01-18 16:47] VITALS: BP 97/51
[2021-01-18 19:07] VITALS: BP 97/51
[2021-01-18 21:47] VITALS: BP 111/70
[2021-01-18] MEDS: ACETAMINOPHEN 325 MG TAB PO PRN (22:34)
[2021-01-19] MEDS: HALOPERIDOL LACTATE 5 MG/ML INJ VIAL IM PRN (03:15)
[2021-01-19] MEDS: SODIUM CHLOR 0.9% PF (SALINE LOCK) 10ML VIAL/SYR IV SCH ×4 (05:27→22:31)
[2021-01-19 05:51] VITALS: BP 112/54
[2021-01-19] MEDS: PRAMIPEXOLE DIHYDROCHLORIDE MO 0.25 MG TAB PO SCH ×3 (06:16→22:30)
[2021-01-19] MEDS: ACCU-CHEK COMFORT CURVE STRIP VI SCH ×4 (06:16→22:30)
[2021-01-19] MEDS: InsuLIN REG 1unit/0.01ml Soln (100units/ml) SC SCH ×4 (07:18→22:29)
[2021-01-19 08:49] VITALS: BP 129/65
[2021-01-19] MEDS: ZINC SULFATE 220mg CAP or TAB PO SCH (09:54)
[2021-01-19] MEDS: ASCORBIC ACID 500 MG TAB PO SCH ×2 (09:54→22:30)
[2021-01-19] MEDS: MULTIPLE VITAMIN TAB PO SCH (09:54)
[2021-01-19] MEDS: ENOXAPARIN SOD 40 MG/0.4 ML SYRINGE SC SCH (09:55)
[2021-01-19] MEDS: METOPROLOL TARTRATE 50 MG TAB PO SCH ×2 (09:55→22:21)
[2021-01-19] MEDS: FAMOTIDINE (10MG/ML) 2ML VL IV SCH (09:55)
[2021-01-19 10:28] LABS: Basophils # (auto) 0.1 10 ^3/uL (0-0.2); Basophils % (auto) 0.6 % (0.0-2.0); Eosinophils # (auto) 0.4 10 ^3/uL (0-0.8); Lymphocytes # (auto) 1.3 10 ^3/uL (0.4-5.4)
[2021-01-19 10:31] LABS: Eosinophils % (auto) 3.2 % (0.0-7.0); Hematocrit 41.1 % (41.0-53.0); Hemoglobin 13.2 g/dL (13.5-17.5); Lymphocytes % (auto) 10.3 % (10.0-50.0); Mean Corpuscular Hemoglobin 24.4 pg (28.0-32.0); Mean Corpuscular Hgb Conc. 32.1 g/dL (32.0-36.0); Monocytes # (auto) 0.8 10 ^3/uL (0-1.3); Monocytes % (auto) 6.7 % (0.0-12.0); Neutrophils # (auto) 9.9 10 ^3/uL (1.6-8.6); Neutrophils % (auto) 79.2 % (37.0-80.0); Nucleated Red Blood Cells % 0.6 %; Platelet Count (auto) 290 10^3/uL (140-450); Red Blood Cells 5.41 10^6/uL (4.5-5.90); Red Cell Distribution Width 18.1 % (11.8-14.3); White Blood Cell 12.6 10^3/uL (4.4-10.8)
[2021-01-19 10:43] LABS: Calcium 9.3 mg/dL (8.5-10.1); Potassium 4.2 mmol/L (3.5-5.1)
[2021-01-19 10:46] LABS: BUN/Creatinine Ratio 16.2
[2021-01-19] MEDS: ACETAMINOPHEN 325 MG TAB PO PRN (12:36)
[2021-01-19 13:00] VITALS: BP 87/52
[2021-01-19 15:55] VITALS: BP 113/68
[2021-01-19 22:00] VITALS: BP 111/54
[2021-01-20] MEDS: HYDROcodone-ACET 10/325MG TAB PO PRN ×3 (03:38→20:16)
[2021-01-20] MEDS: LORazepam 2MG/ML-1ML VIAL IV PRN ×3 (03:38→20:15)
[2021-01-20 05:00] VITALS: BP 145/85
[2021-01-20] MEDS: SODIUM CHLOR 0.9% PF (SALINE LOCK) 10ML VIAL/SYR IV SCH ×3 (06:51→22:00)
[2021-01-20] MEDS: PRAMIPEXOLE DIHYDROCHLORIDE MO 0.25 MG TAB PO SCH ×3 (06:55→23:19)
[2021-01-20] MEDS: InsuLIN REG 1unit/0.01ml Soln (100units/ml) SC SCH ×4 (06:56→23:16)
[2021-01-20] MEDS: ACCU-CHEK COMFORT CURVE STRIP VI SCH ×4 (07:02→23:13)
[2021-01-20 08:00] VITALS: BP 154/90
[2021-01-20 09:45] LABS: Eosinophils # (auto) 0.3 10 ^3/uL (0-0.8); Monocytes # (auto) 0.9 10 ^3/uL (0-1.3); Nucleated Red Blood Cells % 0.4 %
[2021-01-20 09:47] LABS: Basophils # (auto) 0.1 10 ^3/uL (0-0.2); Basophils % (auto) 0.5 % (0.0-2.0); Eosinophils % (auto) 2.2 % (0.0-7.0); Hematocrit 39.8 % (41.0-53.0); Lymphocytes # (auto) 1.1 10 ^3/uL (0.4-5.4); Lymphocytes % (auto) 8.9 % (10.0-50.0); Mean Corpuscular Hemoglobin 24.9 pg (28.0-32.0); Mean Corpuscular Hgb Conc. 32.7 g/dL (32.0-36.0); Mean Corpuscular Volume 76.1 fL (80.0-100.0); Monocytes % (auto) 7.1 % (0.0-12.0); Neutrophils % (auto) 81.3 % (37.0-80.0); Platelet Count (auto) 290 10^3/uL (140-450); Red Blood Cells 5.23 10^6/uL (4.5-5.90); Red Cell Distribution Width 17.7 % (11.8-14.3); White Blood Cell 12.3 10^3/uL (4.4-10.8)
[2021-01-20 10:05] LABS: BUN/Creatinine Ratio 15.3
[2021-01-20] MEDS: FAMOTIDINE (10MG/ML) 2ML VL IV SCH (10:12)
[2021-01-20] MEDS: ZINC SULFATE 220mg CAP or TAB PO SCH (10:12)
[2021-01-20] MEDS: MULTIPLE VITAMIN TAB PO SCH (10:13)
[2021-01-20] MEDS: METOPROLOL TARTRATE 50 MG TAB PO SCH ×2 (10:13→22:00)
[2021-01-20] MEDS: ENOXAPARIN SOD 40 MG/0.4 ML SYRINGE SC SCH (10:14)
[2021-01-20] MEDS: ASCORBIC ACID 500 MG TAB PO SCH ×2 (10:14→23:19)
[2021-01-20 12:49] VITALS: BP 149/82
[2021-01-20 17:00] VITALS: BP 112/49
[2021-01-20 22:00] VITALS: BP 115/55
[2021-01-21 05:05] VITALS: BP 130/67
[2021-01-21] MEDS: HYDROcodone-ACET 10/325MG TAB PO PRN ×3 (07:00→22:26)
[2021-01-21] MEDS: SODIUM CHLOR 0.9% PF (SALINE LOCK) 10ML VIAL/SYR IV SCH ×3 (07:27→21:00)
[2021-01-21] MEDS: ACCU-CHEK COMFORT CURVE STRIP VI SCH ×4 (07:29→21:01)
[2021-01-21] MEDS: PRAMIPEXOLE DIHYDROCHLORIDE MO 0.25 MG TAB PO SCH ×3 (07:29→21:01)
[2021-01-21] MEDS: InsuLIN REG 1unit/0.01ml Soln (100units/ml) SC SCH ×4 (07:55→21:01)
[2021-01-21 08:54] VITALS: BP 129/80
[2021-01-21] MEDS: FAMOTIDINE (10MG/ML) 2ML VL IV SCH (09:52)
[2021-01-21] MEDS: MULTIPLE VITAMIN TAB PO SCH (09:52)
[2021-01-21] MEDS: ASCORBIC ACID 500 MG TAB PO SCH ×2 (09:52→21:01)
[2021-01-21] MEDS: ENOXAPARIN SOD 30 MG/0.3 ML SYRINGE SC SCH (09:52)
[2021-01-21] MEDS: ZINC SULFATE 220mg CAP or TAB PO SCH (09:53)
[2021-01-21] MEDS: METOPROLOL TARTRATE 50 MG TAB PO SCH ×2 (09:53→21:00)
[2021-01-21 10:34] LABS: Eosinophils # (auto) 0.3 10 ^3/uL (0-0.8); Monocytes # (auto) 0.8 10 ^3/uL (0-1.3)
[2021-01-21 10:36] LABS: Basophils # (auto) 0.1 10 ^3/uL (0-0.2); Basophils % (auto) 0.7 % (0.0-2.0); Eosinophils % (auto) 3.7 % (0.0-7.0); Hematocrit 37.2 % (41.0-53.0); Lymphocytes # (auto) 0.8 10 ^3/uL (0.4-5.4); Lymphocytes % (auto) 9.6 % (10.0-50.0); Mean Corpuscular Hemoglobin 24.5 pg (28.0-32.0); Mean Corpuscular Hgb Conc. 32.3 g/dL (32.0-36.0); Monocytes % (auto) 9.6 % (0.0-12.0); Neutrophils # (auto) 6.2 10 ^3/uL (1.6-8.6); Neutrophils % (auto) 76.4 % (37.0-80.0); Platelet Count (auto) 198 10^3/uL (140-450); Red Cell Distribution Width 18.3 % (11.8-14.3); White Blood Cell 8.1 10^3/uL (4.4-10.8)
[2021-01-21 12:50] LABS: BUN/Creatinine Ratio 16.7; Calcium 8.5 mg/dL (8.5-10.1)
[2021-01-21 13:00] VITALS: BP 149/95
[2021-01-21 17:00] VITALS: BP 105/69
[2021-01-21] MEDS: IPRATROPIUM BROM 0.5 MG/2.5ML INH SOL NEB PRN (19:22)
[2021-01-21 20:08] VITALS: BP 105/69
[2021-01-21] MEDS: LORazepam 2MG/ML-1ML VIAL IV PRN (21:02)
[2021-01-21 22:00] VITALS: BP 114/66
[2021-01-22] MEDS: LORazepam 2MG/ML-1ML VIAL IV PRN (04:55)
[2021-01-22 05:00] VITALS: BP 100/64
[2021-01-22] MEDS: PRAMIPEXOLE DIHYDROCHLORIDE MO 0.25 MG TAB PO SCH ×3 (05:17→21:34)
[2021-01-22] MEDS: SODIUM CHLOR 0.9% PF (SALINE LOCK) 10ML VIAL/SYR IV SCH ×3 (05:17→21:35)
[2021-01-22] MEDS: ACCU-CHEK COMFORT CURVE STRIP VI SCH ×4 (06:38→21:34)
[2021-01-22] MEDS: InsuLIN REG 1unit/0.01ml Soln (100units/ml) SC SCH ×4 (06:38→21:26)
[2021-01-22 06:55] LABS: Basophils # (auto) 0.1 10 ^3/uL (0-0.2); Eosinophils # (auto) 0.4 10 ^3/uL (0-0.8); Hemoglobin 12.3 g/dL (13.5-17.5); White Blood Cell 9.2 10^3/uL (4.4-10.8)
[2021-01-22 07:00] LABS: Basophils % (auto) 0.8 % (0.0-2.0); Hematocrit 38.3 % (41.0-53.0); Lymphocytes % (auto) 10.7 % (10.0-50.0); Mean Corpuscular Hemoglobin 24.4 pg (28.0-32.0); Mean Corpuscular Hgb Conc. 32.2 g/dL (32.0-36.0); Mean Corpuscular Volume 75.9 fL (80.0-100.0); Monocytes # (auto) 0.9 10 ^3/uL (0-1.3); Monocytes % (auto) 9.5 % (0.0-12.0); Neutrophils # (auto) 6.9 10 ^3/uL (1.6-8.6); Nucleated Red Blood Cells % 0.1 %; Platelet Count (auto) 238 10^3/uL (140-450); Red Blood Cells 5.05 10^6/uL (4.5-5.90); Red Cell Distribution Width 18.1 % (11.8-14.3)
[2021-01-22 07:14] LABS: Albumin 2.7 g/dL (3.4-5.0); Calcium 8.4 mg/dL (8.5-10.1); Potassium 4.3 mmol/L (3.5-5.1)
[2021-01-22 07:17] LABS: BUN/Creatinine Ratio 16.4
[2021-01-22 07:19] LABS: Bilirubin, Total 0.8 mg/dL (0.2-1.0)
[2021-01-22 09:00] VITALS: BP 110/56
[2021-01-22] MEDS: METOPROLOL TARTRATE 50 MG TAB PO SCH (09:52)
[2021-01-22] MEDS: MULTIPLE VITAMIN TAB PO SCH (09:52)
[2021-01-22] MEDS: FAMOTIDINE (10MG/ML) 2ML VL IV SCH (09:52)
[2021-01-22] MEDS: ASCORBIC ACID 500 MG TAB PO SCH ×2 (09:52→21:34)
[2021-01-22] MEDS: ZINC SULFATE 220mg CAP or TAB PO SCH (09:52)
[2021-01-22] MEDS: ENOXAPARIN SOD 30 MG/0.3 ML SYRINGE SC SCH (09:53)
[2021-01-22] MEDS: HALOPERIDOL LACTATE 5 MG/ML INJ VIAL IM PRN (09:53)
[2021-01-22] MEDS: HYDROcodone-ACET 10/325MG TAB PO PRN (11:42)
[2021-01-22 13:00] VITALS: BP 127/60
[2021-01-22] MEDS ORDERED: SODIUM CHLORIDE 0.9% 1,000 ML IV ONE (13:30)
[2021-01-22 17:00] VITALS: BP 111/79
[2021-01-22] MEDS: HYDROmorphone HCL 2 MG/ML VL IV PRN (18:41)
[2021-01-22 22:00] VITALS: BP 141/80
[2021-01-23] MEDS: HYDROmorphone HCL 2 MG/ML VL IV PRN ×4 (04:02→23:13)
[2021-01-23 05:00] VITALS: BP 150/80
[2021-01-23] MEDS: PRAMIPEXOLE DIHYDROCHLORIDE MO 0.25 MG TAB PO SCH ×3 (05:57→22:00)
[2021-01-23] MEDS: ACCU-CHEK COMFORT CURVE STRIP VI SCH ×4 (05:57→22:00)
[2021-01-23] MEDS: SODIUM CHLOR 0.9% PF (SALINE LOCK) 10ML VIAL/SYR IV SCH ×3 (05:57→22:00)
[2021-01-23] MEDS: InsuLIN REG 1unit/0.01ml Soln (100units/ml) SC SCH ×4 (06:40→22:00)
[2021-01-23] MEDS: ENOXAPARIN SOD 30 MG/0.3 ML SYRINGE SC SCH (08:53)
[2021-01-23 09:00] VITALS: BP 111/65
[2021-01-23] MEDS: FAMOTIDINE (10MG/ML) 2ML VL IV SCH (10:38)
[2021-01-23 13:00] VITALS: BP 114/63
[2021-01-23] MEDS: HALOPERIDOL LACTATE 5 MG/ML INJ VIAL IM PRN ×2 (13:30→20:51)
[2021-01-23 17:00] VITALS: BP 140/99
[2021-01-23 21:52] VITALS: BP 125/70
[2021-01-24] MEDS: DOCUSATE SOD 100 MG CAP PO PRN ×3 (01:49→22:03)
[2021-01-24] MEDS: HALOPERIDOL LACTATE 5 MG/ML INJ VIAL IM PRN ×3 (01:49→21:37)
[2021-01-24] MEDS: ALBUTEROL SULF 2.5 MG/0.5ML(0.5%) NEB SOLN NEB PRN (02:46)
[2021-01-24] MEDS: IPRATROPIUM BROM 0.5 MG/2.5ML INH SOL NEB PRN (02:46)
[2021-01-24] MEDS: HYDROmorphone HCL 2 MG/ML VL IV PRN ×3 (03:22→22:47)
[2021-01-24 04:54] VITALS: BP 134/79
[2021-01-24] MEDS: SODIUM CHLOR 0.9% PF (SALINE LOCK) 10ML VIAL/SYR IV SCH ×3 (06:00→22:00)
[2021-01-24] MEDS: ACCU-CHEK COMFORT CURVE STRIP VI SCH ×4 (06:51→22:00)
[2021-01-24] MEDS: PRAMIPEXOLE DIHYDROCHLORIDE MO 0.25 MG TAB PO SCH ×3 (06:51→21:37)
[2021-01-24] MEDS: InsuLIN REG 1unit/0.01ml Soln (100units/ml) SC SCH ×4 (07:00→22:29)
[2021-01-24 09:00] VITALS: BP 128/73
[2021-01-24] MEDS: FAMOTIDINE (10MG/ML) 2ML VL IV SCH (10:00)
[2021-01-24] MEDS: ENOXAPARIN SOD 30 MG/0.3 ML SYRINGE SC SCH (10:01)
[2021-01-24] MEDS: HYDROcodone-ACET 10/325MG TAB PO PRN ×3 (10:01→21:37)
[2021-01-24 13:00] VITALS: BP 103/50
[2021-01-24 17:00] VITALS: BP 124/65
[2021-01-24 22:00] VITALS: BP 137/75
[2021-01-25 01:04] VITALS: BP 124/64
[2021-01-25] MEDS: HYDROmorphone HCL 2 MG/ML VL IV PRN (04:57)
[2021-01-25 05:00] VITALS: BP 102/64
[2021-01-25] MEDS: InsuLIN REG 1unit/0.01ml Soln (100units/ml) SC SCH ×4 (06:28→21:39)
[2021-01-25] MEDS: SODIUM CHLOR 0.9% PF (SALINE LOCK) 10ML VIAL/SYR IV SCH ×3 (06:28→21:37)
[2021-01-25] MEDS: ACCU-CHEK COMFORT CURVE STRIP VI SCH ×4 (06:29→21:37)
[2021-01-25 09:00] VITALS: BP 133/79
[2021-01-25] MEDS: PRAMIPEXOLE DIHYDROCHLORIDE MO 0.25 MG TAB PO SCH ×3 (10:31→21:42)
[2021-01-25] MEDS: FAMOTIDINE (10MG/ML) 2ML VL IV SCH (10:32)
[2021-01-25] MEDS: ENOXAPARIN SOD 30 MG/0.3 ML SYRINGE SC SCH (10:33)
[2021-01-25 13:00] VITALS: BP 108/71
[2021-01-25] MEDS: HYDROcodone-ACET 10/325MG TAB PO PRN (15:49)
[2021-01-25 17:20] VITALS: BP 106/69
[2021-01-25 22:00] VITALS: BP 154/97
[2021-01-25] MEDS: HALOPERIDOL LACTATE 5 MG/ML INJ VIAL IM PRN (22:33)
[2021-01-26] MEDS: HYDROcodone-ACET 10/325MG TAB PO PRN ×2 (02:25→09:38)
[2021-01-26] MEDS: HYDROmorphone HCL 2 MG/ML VL IV PRN ×2 (04:15→22:06)
[2021-01-26 05:00] VITALS: BP 143/86
[2021-01-26] MEDS: SODIUM CHLOR 0.9% PF (SALINE LOCK) 10ML VIAL/SYR IV SCH ×3 (05:00→22:01)
[2021-01-26] MEDS: PRAMIPEXOLE DIHYDROCHLORIDE MO 0.25 MG TAB PO SCH ×3 (05:49→22:06)
[2021-01-26] MEDS: ACCU-CHEK COMFORT CURVE STRIP VI SCH ×4 (06:15→22:01)
[2021-01-26] MEDS: InsuLIN REG 1unit/0.01ml Soln (100units/ml) SC SCH ×4 (06:24→23:11)
[2021-01-26] MEDS: FAMOTIDINE (10MG/ML) 2ML VL IV SCH (09:36)
[2021-01-26] MEDS: ENOXAPARIN SOD 30 MG/0.3 ML SYRINGE SC SCH (09:36)
[2021-01-26 21:35] VITALS: BP 122/75
[2021-01-27] MEDS: HALOPERIDOL LACTATE 5 MG/ML INJ VIAL IM PRN (02:07)
[2021-01-27 05:00] VITALS: BP 148/77
[2021-01-27] MEDS: SODIUM CHLOR 0.9% PF (SALINE LOCK) 10ML VIAL/SYR IV SCH ×3 (06:00→22:21)
[2021-01-27] MEDS: InsuLIN REG 1unit/0.01ml Soln (100units/ml) SC SCH ×4 (07:00→22:00)
[2021-01-27] MEDS: ACCU-CHEK COMFORT CURVE STRIP VI SCH ×4 (07:13→22:21)
[2021-01-27] MEDS: PRAMIPEXOLE DIHYDROCHLORIDE MO 0.25 MG TAB PO SCH ×3 (07:27→22:06)
[2021-01-27 08:48] VITALS: BP 113/54
[2021-01-27] MEDS: ALBUTEROL SULF 2.5 MG/0.5ML(0.5%) NEB SOLN NEB PRN (09:15)
[2021-01-27] MEDS: IPRATROPIUM BROM 0.5 MG/2.5ML INH SOL NEB PRN (09:15)
[2021-01-27] MEDS: FAMOTIDINE (10MG/ML) 2ML VL IV SCH (09:51)
[2021-01-27] MEDS: ENOXAPARIN SOD 30 MG/0.3 ML SYRINGE SC SCH (09:51)
[2021-01-27] MEDS: ONDANSETRON HCL 4 MG/2 ML VIAL IV PRN (12:17)
[2021-01-27 13:51] VITALS: BP 102/53
[2021-01-27 16:50] VITALS: BP 102/66
[2021-01-27] MEDS: HYDROmorphone HCL 2 MG/ML VL IV PRN (22:18)
[2021-01-27 22:54] VITALS: BP 108/73
[2021-01-28 05:00] VITALS: BP 94/58
[2021-01-28] MEDS: PRAMIPEXOLE DIHYDROCHLORIDE MO 0.25 MG TAB PO SCH ×3 (06:00→21:55)
[2021-01-28] MEDS: SODIUM CHLOR 0.9% PF (SALINE LOCK) 10ML VIAL/SYR IV SCH ×3 (06:02→21:55)
[2021-01-28] MEDS: InsuLIN REG 1unit/0.01ml Soln (100units/ml) SC SCH ×4 (06:04→21:55)
[2021-01-28] MEDS: ACCU-CHEK COMFORT CURVE STRIP VI SCH ×4 (06:09→21:55)
[2021-01-28 09:00] VITALS: BP 106/73
[2021-01-28] MEDS: ENOXAPARIN SOD 30 MG/0.3 ML SYRINGE SC SCH (09:40)
[2021-01-28] MEDS: FAMOTIDINE (10MG/ML) 2ML VL IV SCH (09:40)
[2021-01-28 10:19] VITALS: BP 109/74
[2021-01-28] MEDS: HALOPERIDOL LACTATE 5 MG/ML INJ VIAL IM PRN ×2 (11:09→22:16)
[2021-01-28 13:00] VITALS: BP 118/68
[2021-01-28] MEDS: HYDROmorphone HCL 2 MG/ML VL IV PRN ×2 (14:24→23:11)
[2021-01-28 17:00] VITALS: BP 95/60
[2021-01-28 22:00] VITALS: BP 109/72
[2021-01-29] MEDS: HYDROmorphone HCL 2 MG/ML VL IV PRN (04:14)
[2021-01-29 05:00] VITALS: BP 131/71
[2021-01-29] MEDS: SODIUM CHLOR 0.9% PF (SALINE LOCK) 10ML VIAL/SYR IV SCH ×3 (06:00→20:56)
[2021-01-29] MEDS: PRAMIPEXOLE DIHYDROCHLORIDE MO 0.25 MG TAB PO SCH ×3 (06:01→20:56)
[2021-01-29] MEDS: ACCU-CHEK COMFORT CURVE STRIP VI SCH ×4 (06:46→20:57)
[2021-01-29] MEDS: InsuLIN REG 1unit/0.01ml Soln (100units/ml) SC SCH ×4 (06:47→20:57)
[2021-01-29 09:00] VITALS: BP 128/81
[2021-01-29] MEDS: ALBUTEROL SULF 2.5 MG/0.5ML(0.5%) NEB SOLN NEB PRN ×2 (09:14→16:35)
[2021-01-29] MEDS: IPRATROPIUM BROM 0.5 MG/2.5ML INH SOL NEB PRN ×2 (09:14→16:35)
[2021-01-29] MEDS: ENOXAPARIN SOD 30 MG/0.3 ML SYRINGE SC SCH (09:58)
[2021-01-29] MEDS: FAMOTIDINE (10MG/ML) 2ML VL IV SCH (09:58)
[2021-01-29] MEDS: HALOPERIDOL LACTATE 5 MG/ML INJ VIAL IM PRN (10:06)
[2021-01-29 13:00] VITALS: BP 137/71
[2021-01-29] MEDS: LORazepam 0.5 MG TAB PO PRN (16:25)
[2021-01-29 17:00] VITALS: BP 132/78
[2021-01-29 21:58] VITALS: BP 154/75
[2021-01-30] MEDS: LORazepam 0.5 MG TAB PO PRN ×3 (00:16→18:47)
[2021-01-30 04:58] VITALS: BP 121/69
[2021-01-30] MEDS: SODIUM CHLOR 0.9% PF (SALINE LOCK) 10ML VIAL/SYR IV SCH (06:37)
[2021-01-30] MEDS: ACCU-CHEK COMFORT CURVE STRIP VI SCH (06:38)
[2021-01-30] MEDS: InsuLIN REG 1unit/0.01ml Soln (100units/ml) SC SCH ×2 (06:38→21:24)
[2021-01-30] MEDS: PRAMIPEXOLE DIHYDROCHLORIDE MO 0.25 MG TAB PO SCH ×3 (06:38→21:23)
[2021-01-30 08:31] VITALS: BP 137/76
[2021-01-30] MEDS: FAMOTIDINE (10MG/ML) 2ML VL IV SCH (09:13)
[2021-01-30] MEDS: ENOXAPARIN SOD 30 MG/0.3 ML SYRINGE SC SCH (09:14)
[2021-01-30] MEDS ORDERED: LACTULOSE 20Gm/30ML SOLN PO ONE (12:00)
[2021-01-30] MEDS: HYDROmorphone HCL 2 MG/ML VL IV PRN ×2 (12:07→18:47)
[2021-01-30] MEDS ORDERED: IPRATROPIUM BROM 0.5 MG/2.5ML INH SOL ONE (12:12)
[2021-01-30] MEDS ORDERED: ALBUTEROL SULF 2.5 MG/0.5ML(0.5%) NEB SOLN ONE (12:12)
[2021-01-30] MEDS ORDERED: ALBUTEROL SULF 2.5 MG/0.5ML(0.5%) NEB SOLN NEB ONE (12:15)
[2021-01-30] MEDS ORDERED: IPRATROPIUM BROM 0.5 MG/2.5ML INH SOL NEB ONE (12:30)
[2021-01-30 12:59] VITALS: BP 142/77
[2021-01-30 16:37] VITALS: BP 129/69
[2021-01-30] MEDS ORDERED: IPRATROPIUM BROM 0.5 MG/2.5ML INH SOL NEB PRN (18:45)
[2021-01-30] MEDS ORDERED: ALBUTEROL SULF 2.5 MG/0.5ML(0.5%) NEB SOLN NEB PRN (18:45)
[2021-01-30 22:00] VITALS: BP 114/79
[2021-01-31 05:00] VITALS: BP 116/70
[2021-01-31 07:16] VITALS: BP 116/70
[2021-01-31 09:17] VITALS: BP 116/70
== END 2021-01-31 10:20 | disposition hospice, inpatient (51) | DRG 435 ==
LOC: ER 02:02 → EDBD 02:02 → TELE 02:03 → TELE-WESTW 09:43 → TELE-EAST 10:28 → TELE-WESTW 12:20
PROVIDERS: ADMIT Nurse Practitioner Family; ATTEND Family Medicine
PROC: 0W993ZZ Drainage of Right Pleural Cavity, Percutaneous Approach (ICD-10-PCS; 2020-12-31)
PROC: 0W9930Z Drainage of Right Pleural Cavity with Drainage Device, Percutaneous Approach (ICD-10-PCS; principal; 2021-01-01)
PROC: 05HC33Z Insertion of Infusion Device into Left Basilic Vein, Percutaneous Approach (ICD-10-PCS; 2021-01-02)
PROC: B54NZZA Ultrasonography of Left Upper Extremity Veins, Guidance (ICD-10-PCS; 2021-01-02)
PROC: 0W9930Z Drainage of Right Pleural Cavity with Drainage Device, Percutaneous Approach (ICD-10-PCS; 2021-01-11)
PROC: 0W9930Z Drainage of Right Pleural Cavity with Drainage Device, Percutaneous Approach (ICD-10-PCS; 2021-01-18)
DX: C25.9 Malignant neoplasm of pancreas, unspecified (principal); J96.01 Acute respiratory failure with hypoxia; J18.9 Pneumonia, unspecified organism; I50.43 Acute on chronic combined systolic (congestive) and diastolic (congestive) heart failure; G93.41 Metabolic encephalopathy; J91.0 Malignant pleural effusion; I13.0 Hypertensive heart and chronic kidney disease with heart failure and stage 1 through stage 4 chronic kidney disease, or unspecified chronic kidney disease; J44.1 Chronic obstructive pulmonary disease with (acute) exacerbation; J98.11 Atelectasis; G93.1 Anoxic brain damage, not elsewhere classified; J44.0 Chronic obstructive pulmonary disease with (acute) lower respiratory infection; E87.1 Hypo-osmolality and hyponatremia; J93.82 Other air leak; J93.9 Pneumothorax, unspecified; J94.8 Other specified pleural conditions; N17.9 Acute kidney failure, unspecified; Z20.822 Contact with and (suspected) exposure to COVID-19; Z51.5 Encounter for palliative care; Z66 Do not resuscitate; E11.65 Type 2 diabetes mellitus with hyperglycemia; E66.9 Obesity, unspecified; Z68.38 Body mass index [BMI] 38.0-38.9, adult; D64.9 Anemia, unspecified; E11.22 Type 2 diabetes mellitus with diabetic chronic kidney disease; E53.8 Deficiency of other specified B group vitamins; E78.5 Hyperlipidemia, unspecified; F02.80 Dementia in other diseases classified elsewhere, unspecified severity, without behavioral disturbance, psychotic disturbance, mood disturbance, and anxiety; F41.9 Anxiety disorder, unspecified; G30.9 Alzheimer's disease, unspecified; G89.29 Other chronic pain; I25.10 Atherosclerotic heart disease of native coronary artery without angina pectoris; I25.2 Old myocardial infarction; M19.90 Unspecified osteoarthritis, unspecified site; N18.9 Chronic kidney disease, unspecified; S00.81XA Abrasion of other part of head, initial encounter; G47.33 Obstructive sleep apnea (adult) (pediatric); Z79.84 Long term (current) use of oral hypoglycemic drugs; Z80.0 Family history of malignant neoplasm of digestive organs; Z82.0 Family history of epilepsy and other diseases of the nervous system; Z82.49 Family history of ischemic heart disease and other diseases of the circulatory system; Z85.038 Personal history of other malignant neoplasm of large intestine; Z95.0 Presence of cardiac pacemaker; Z99.81 Dependence on supplemental oxygen; Z79.899 Other long term (current) drug therapy; Z88.0 Allergy status to penicillin
CPT/HCPCS: 10022; 36415; 70450; 71045; 71250; 71275; 74176; 76604; 76705; 76942; 80048; 80053; 81001; 82565; 82607; 82746; 82962; 83036; 83690; 83735; 83880; 83986; 84100; 84443; 84484; 85025; 85379; 85610; 85730; 86301; 87040; 87086; 87205; 87426; 89051; 93005; 93017; 93306; 93970; 93971; 94640; 96372; 96374; 97110; 97116; 97163; 97530; A4223; C1729; G0378; J0696; J1815; J2250; J2405; J3490; J7060